=== PATIENT | female | born 1985 | race Caucasian/White ===

== ENCOUNTER 2017-03-18 13:22 | Observation (INO) | payer OTHER ==
[~2017-03-18] VITALS: Ht 175.3 cm; Wt 152.0 kg
[~2017-03-18 13:22] MED LIST: ADVAIR DISK1 INH; ALBUTEROL S2.5 MG/.5 IN; AMOXICILLIN500 MG PO; AUGMENTIN875TAB PO; CARAFATE OR; CIPROFLOXACN500 MG PO; FLEXERIL PO; FLOXIN OTIC0.3 % OT; GLYBURIDE5 MG PO; HUMALOG100 MG/ML; HUMALOG100 UNIT/M SC; HUMULIN 70/30 SC; INSULIN 70/30; INVOKANA300 MG PO; LANTUS100 MG/ML SC; LASIX 20 MG TAB20 MG PO; LEVOTHYROXIN50 MCG PO; MEDDOSEPAK PO; METFORMIN500 MG; METFORMIN500 MG PO; NEOMYCIN/POLYMYXIN/G AD; NOVOLIN 70/30 SC; PERCOCET 5/325M1 TAB PO; PHENERGAN25 MG/TAB PO; PREMARIN VAG0.625 MG PO; PREVACID30 M2 PO; PROMETHAZINE25 MG OR; PROVENTIL HFA IN; PROVERA5 MG PO; REGLAN10 MG PO; THYROID; ULTRAM50 M1 PO; ULTRAM50 MG PO; [UNRECOGNIZED DRUG - OTHER]
[2017-03-18 13:57] LABS: URINE BILIRUBIN - DIPSTICK NEGATIVE (NEGATIVE); URINE BLOOD DIPSTICK NEGATIVE (NEGATIVE); URINE CLARITY CLEAR; URINE COLOR YELLOW; URINE GLUCOSE - DIPSTICK >=1000 mg/dL (NEGATIVE); URINE KETONE NEGATIVE (NEGATIVE); URINE LEUK ESTERASE NEGATIVE (NEGATIVE); URINE NITRITE - DIPSTICK NEGATIVE (Negative); URINE PROTEIN - DIPSTICK NEGATIVE (NEG-TRACE); URINE SPECIFIC GRAVITY 1.015; URINE UROBILINOGEN - DIPSTICK 0.2 E.U./dL (0.2)
[2017-03-18 14:00] LABS: HEMATOCRIT 42.1 % (37.0-47.0); HEMOGLOBIN 14.7 g/dl (12.0-16.0); IMMATURE GRANULOCYTES 0.4 % (0.0-1.0); MEAN CELL VOLUME 87.7 fL CALC (80.0-100.0); MEAN CORPUSCULAR HGB 30.6 pG CALC (26.0-32.0); MEAN CORPUSCULAR HGB CONC 34.9 g/L CALC (32.0-36.0); NEUT# 6.22 thou/uL (2.00-7.15); RED BLOOD COUNT 4.8 mill/uL (4.20-5.60); RED CELL DISTRI WIDTH 13.2 % (11.5-15.5)
[2017-03-18 14:01] LABS: BARBITURATES NEGATIVE (NEGATIVE); COCAINE NEGATIVE (NEGATIVE); METHADONE NEGATIVE (NEGATIVE); OXCYCODONE NEGATIVE (NEGATIVE); TETRAHYDROCANNABIONOL NEGATIVE (NEGATIVE); TRICYLIC ANTIDEPRESSANTS NEGATIVE (NEGATIVE)
[2017-03-18] MEDS ORDERED: ORTHO TRI-CYCLEN LO PO (14:03)
[2017-03-18 14:12] LABS: ALBUMIN 4.5 g/dL (3.2-5.0); ALKALINE PHOSPHATASE 92 u/l (38-126); ANION GAP 20 (6-22 (CALC)); BILIRUBIN, TOTAL 0.7 mg/dL (0.0-1.4); BUN 13 mg/dL (7-17); BUN/CREATININE RATIO 18 (12-20 (CALC)); CALCIUM 9.4 mg/dL (8.4-10.2); CARBON DIOXIDE 22 mmol/l (22-30); CHLORIDE 101 mmol/l (95-108); CREATININE 0.7 mg/dL (0.5-1.0); GFR > 60 ML/MIN (>=60 (CALC)); GFR FOR AFR.AMER. > 60 ML/MIN (>=60 (CALC)); GLUCOSE 190 mg/dL (65-105); POTASSIUM 3.5 mmol/l (3.5-5.1); SGOT/AST 22 u/l (14-36); SGPT/ALT 28 u/l (9-52); SODIUM 139 mmol/l (137-146); TOTAL PROTEIN 8.4 g/dL (6.3-8.2)
[2017-03-18 14:24] LABS: MYOGLOBIN 33 ng/mL (0 - 62)
[2017-03-18 16:15] VITALS: BP 115/68
[2017-03-18 18:58] VITALS: BP 102/67
[2017-03-18 23:16] VITALS: BP 108/63
[2017-03-19 05:17] VITALS: BP 102/68
[2017-03-19 06:07] LABS: HEMATOCRIT 38.5 % (37.0-47.0); HEMOGLOBIN 13.1 g/dl (12.0-16.0); IMMATURE GRANULOCYTES 0.3 % (0.0-1.0); MEAN CELL VOLUME 89.5 fL CALC (80.0-100.0); MEAN CORPUSCULAR HGB 30.5 pG CALC (26.0-32.0); NEUT# 5.19 thou/uL (2.00-7.15); RED BLOOD COUNT 4.3 mill/uL (4.20-5.60); RED CELL DISTRI WIDTH 13.1 % (11.5-15.5)
[2017-03-19 07:41] VITALS: BP 104/49
[2017-03-19 12:22] VITALS: BP 122/72
== END 2017-03-19 13:10 | disposition home or self-care (01) | DRG 313 ==
LOC: ENPENDDIS → ED 13:22 → ED-I 15:07 → ED 15:29 → MS2 15:30
PROVIDERS: Emergency Medicine; ADMIT Internal Medicine; ATTEND Internal Medicine
DX: R07.89 Other chest pain (principal); E10.8 Type 1 diabetes mellitus with unspecified complications; Z68.42 Body mass index [BMI] 45.0-49.9, adult; R55 Syncope and collapse; J45.909 Unspecified asthma, uncomplicated; G47.33 Obstructive sleep apnea (adult) (pediatric); E78.5 Hyperlipidemia, unspecified; E66.01 Morbid (severe) obesity due to excess calories; Z79.4 Long term (current) use of insulin; Z82.49 Family history of ischemic heart disease and other diseases of the circulatory system
CPT/HCPCS: G0378

== ENCOUNTER 2017-05-07 09:51 | Observation (INO) | payer OTHER ==
[~2017-05-07] VITALS: Ht 175.3 cm; Wt 153.0 kg
[~2017-05-07 09:51] MED LIST changes: +ORTHO TRI-CYCLEN LO PO
[2017-05-07] MEDS ORDERED: ALBUTEROL SUL0.083 % IN (10:02)
[2017-05-07 10:44] LABS: HEMOGLOBIN 14.3 g/dl (12.0-16.0); IMMATURE GRANULOCYTES 0.4 % (0.0-1.0); MEAN CELL VOLUME 86.4 fL CALC (80.0-100.0); MEAN CORPUSCULAR HGB 30.9 pG CALC (26.0-32.0); MEAN CORPUSCULAR HGB CONC 35.8 g/L CALC (32.0-36.0); NEUT# 7.91 thou/uL (2.00-7.15); RED BLOOD COUNT 4.63 mill/uL (4.20-5.60); RED CELL DISTRI WIDTH 13.1 % (11.5-15.5)
[2017-05-07 11:03] LABS: ALBUMIN 3.7 g/dL (3.2-5.0); ALKALINE PHOSPHATASE 64 u/l (38-126); ANION GAP 14 (6-22 (CALC)); BILIRUBIN, TOTAL 0.9 mg/dL (0.0-1.4); BUN 13 mg/dL (7-17); BUN/CREATININE RATIO 24 (12-20 (CALC)); CALCIUM 8.5 mg/dL (8.4-10.2); CARBON DIOXIDE 24 mmol/l (22-30); CHLORIDE 103 mmol/l (95-108); CREATININE 0.5 mg/dL (0.5-1.0); GFR > 60 ML/MIN (>=60 (CALC)); GFR FOR AFR.AMER. > 60 ML/MIN (>=60 (CALC)); GLUCOSE 153 mg/dL (65-105); LIPASE 311 u/l (23-300); POTASSIUM 4.5 mmol/l (3.5-5.1); SGOT/AST 34 u/l (14-36); SGPT/ALT 31 u/l (9-52); SODIUM 137 mmol/l (137-146); TOTAL PROTEIN 6.7 g/dL (6.3-8.2)
[2017-05-07 11:32] LABS: URINE BILIRUBIN - DIPSTICK NEGATIVE (NEGATIVE); URINE BLOOD DIPSTICK NEGATIVE (NEGATIVE); URINE CLARITY CLEAR; URINE COLOR YELLOW; URINE GLUCOSE - DIPSTICK NEGATIVE (NEGATIVE); URINE KETONE NEGATIVE (NEGATIVE); URINE LEUK ESTERASE NEGATIVE (Negative); URINE NITRITE - DIPSTICK NEGATIVE (Negative); URINE PH 6.5 (4.5-8.0); URINE PROTEIN - DIPSTICK NEGATIVE (NEG-TRACE); URINE SPECIFIC GRAVITY 1.015; URINE UROBILINOGEN - DIPSTICK 0.2 E.U./dL (0.2)
[2017-05-07 15:36] VITALS: BP 110/78
[2017-05-07 18:58] VITALS: BP 115/75
[2017-05-07 23:44] VITALS: BP 112/66
[2017-05-08 03:32] VITALS: BP 113/72
[2017-05-08 04:57] LABS: HEMATOCRIT 38.7 % (37.0-47.0); HEMOGLOBIN 13.3 g/dl (12.0-16.0); IMMATURE GRANULOCYTES 0.3 % (0.0-1.0); MEAN CELL VOLUME 89.4 fL CALC (80.0-100.0); MEAN CORPUSCULAR HGB 30.7 pG CALC (26.0-32.0); MEAN CORPUSCULAR HGB CONC 34.4 g/L CALC (32.0-36.0); NEUT# 7.04 thou/uL (2.00-7.15); RED BLOOD COUNT 4.33 mill/uL (4.20-5.60); RED CELL DISTRI WIDTH 12.9 % (11.5-15.5)
[2017-05-08 05:18] LABS: AMYLASE 35 u/l (30-110); ANION GAP 10 (6-22 (CALC)); BUN 10 mg/dL (7-17); BUN/CREATININE RATIO 18 (12-20 (CALC)); CALCIUM 8.6 mg/dL (8.4-10.2); CARBON DIOXIDE 28 mmol/l (22-30); CHLORIDE 104 mmol/l (95-108); CREATININE 0.6 mg/dL (0.5-1.0); GFR > 60 ML/MIN (>=60 (CALC)); GFR FOR AFR.AMER. > 60 ML/MIN (>=60 (CALC)); GLUCOSE 99 mg/dL (65-105); LIPASE 199 u/l (23-300); POTASSIUM 4.2 mmol/l (3.5-5.1); SODIUM 137 mmol/l (137-146)
[2017-05-08 08:08] VITALS: BP 113/70
[2017-05-08] MEDS ORDERED: MIRALAX3350 NF PO (11:46)
== END 2017-05-08 15:10 | disposition home or self-care (01) | DRG 439 ==
LOC: ENPENDDIS → ED 09:51 → ED-I 14:44 → ED 14:58 → MS2 14:59 → ED 15:06 → ED-I 15:06 → MS2 05-08 15:10
PROVIDERS: Emergency Medicine; Nurse Practitioner Family; ADMIT Internal Medicine; ATTEND Internal Medicine
DX: K85.90 Acute pancreatitis without necrosis or infection, unspecified (principal); Z68.42 Body mass index [BMI] 45.0-49.9, adult; N83.202 Unspecified ovarian cyst, left side; E03.9 Hypothyroidism, unspecified; J45.909 Unspecified asthma, uncomplicated; G47.30 Sleep apnea, unspecified; E10.9 Type 1 diabetes mellitus without complications; K59.00 Constipation, unspecified; N93.8 Other specified abnormal uterine and vaginal bleeding; E66.01 Morbid (severe) obesity due to excess calories; Z79.84 Long term (current) use of oral hypoglycemic drugs; Z79.4 Long term (current) use of insulin; Z76.5 Malingerer [conscious simulation]
CPT/HCPCS: G0378; Q9967; S0164

== ENCOUNTER 2017-05-14 08:50 | Emergency (ER) | payer OTHER ==
[~2017-05-14] VITALS: Ht 175.3 cm; Wt 153.0 kg
[~2017-05-14 08:50] MED LIST changes: +ALBUTEROL SUL0.083 % IN; +MIRALAX3350 NF PO
[2017-05-14 09:23] LABS: HEMATOCRIT 39.8 % (37.0-47.0); HEMOGLOBIN 13.9 g/dl (12.0-16.0); IMMATURE GRANULOCYTES 0.3 % (0.0-1.0); MEAN CORPUSCULAR HGB 31.1 pG CALC (26.0-32.0); MEAN CORPUSCULAR HGB CONC 34.9 g/L CALC (32.0-36.0); NEUT# 5.07 thou/uL (2.00-7.15); RED BLOOD COUNT 4.47 mill/uL (4.20-5.60); RED CELL DISTRI WIDTH 12.7 % (11.5-15.5)
[2017-05-14 09:35] LABS: URINE BILIRUBIN - DIPSTICK NEGATIVE (NEGATIVE); URINE BLOOD DIPSTICK LARGE (NEGATIVE); URINE CLARITY TURBID; URINE GLUCOSE - DIPSTICK >=1000 mg/dL (NEGATIVE); URINE KETONE NEGATIVE (NEGATIVE); URINE LEUK ESTERASE NEGATIVE (NEGATIVE); URINE NITRITE - DIPSTICK NEGATIVE (Negative); URINE PROTEIN - DIPSTICK TRACE mg/dL (NEG-TRACE); URINE UROBILINOGEN - DIPSTICK 0.2 E.U./dL (0.2)
[2017-05-14 09:37] LABS: URINE COLOR DK. YELLOW
[2017-05-14 09:38] LABS: URINE BACTERIA FEW hpf; URINE RBC 25-50 RBC/hpf (0-5); URINE SQUAMOUS EPITHELIAL CELL FEW EPI/hpf (0-FEW)
[2017-05-14 09:47] LABS: ALKALINE PHOSPHATASE 78 u/l (38-126); ANION GAP 16 (6-22 (CALC)); BILIRUBIN, TOTAL 0.4 mg/dL (0.0-1.4); BUN 9 mg/dL (7-17); BUN/CREATININE RATIO 16 (12-20 (CALC)); CALCIUM 9.3 mg/dL (8.4-10.2); CARBON DIOXIDE 23 mmol/l (22-30); CHLORIDE 104 mmol/l (95-108); CREATININE 0.6 mg/dL (0.5-1.0); GFR > 60 ML/MIN (>=60 (CALC)); GFR FOR AFR.AMER. > 60 ML/MIN (>=60 (CALC)); GLUCOSE 291 mg/dL (65-105); POTASSIUM 4.3 mmol/l (3.5-5.1); SGOT/AST 19 u/l (14-36); SGPT/ALT 41 u/l (9-52); SODIUM 138 mmol/l (137-146); TOTAL PROTEIN 6.6 g/dL (6.3-8.2)
[2017-05-14 12:30] VITALS: BP 107/61
== END 2017-05-14 13:25 | disposition home or self-care (01) | DRG 761 ==
LOC: ED 08:50
PROVIDERS: Emergency Medicine
DX: N93.8 Other specified abnormal uterine and vaginal bleeding (principal); E66.01 Morbid (severe) obesity due to excess calories; E11.9 Type 2 diabetes mellitus without complications; J45.909 Unspecified asthma, uncomplicated; E03.9 Hypothyroidism, unspecified; Z79.4 Long term (current) use of insulin; Z79.84 Long term (current) use of oral hypoglycemic drugs
CPT/HCPCS: J1410

== ENCOUNTER 2017-05-16 01:44 | Emergency (ER) | payer OTHER ==
[~2017-05-16] VITALS: Ht 175.3 cm; Wt 154.0 kg
[2017-05-16] MEDS ORDERED: PREMARIN0.3 MG PO (02:27)
[2017-05-16 02:44] LABS: HEMATOCRIT 37.9 % (37.0-47.0); HEMOGLOBIN 13.3 g/dl (12.0-16.0); IMMATURE GRANULOCYTES 0.2 % (0.0-1.0); MEAN CELL VOLUME 87.9 fL CALC (80.0-100.0); MEAN CORPUSCULAR HGB 30.9 pG CALC (26.0-32.0); MEAN CORPUSCULAR HGB CONC 35.1 g/L CALC (32.0-36.0); NEUT# 5.42 thou/uL (2.00-7.15); RED BLOOD COUNT 4.31 mill/uL (4.20-5.60); RED CELL DISTRI WIDTH 12.6 % (11.5-15.5)
[2017-05-16 02:49] LABS: ALBUMIN 3.9 g/dL (3.2-5.0); ALKALINE PHOSPHATASE 80 u/l (38-126); ANION GAP 14 (6-22 (CALC)); BILIRUBIN, TOTAL 0.4 mg/dL (0.0-1.4); BUN 13 mg/dL (7-17); BUN/CREATININE RATIO 23 (12-20 (CALC)); CALCIUM 9.3 mg/dL (8.4-10.2); CARBON DIOXIDE 25 mmol/l (22-30); CHLORIDE 104 mmol/l (95-108); CREATININE 0.5 mg/dL (0.5-1.0); GFR > 60 ML/MIN (>=60 (CALC)); GFR FOR AFR.AMER. > 60 ML/MIN (>=60 (CALC)); GLUCOSE 254 mg/dL (65-105); POTASSIUM 4.2 mmol/l (3.5-5.1); SGOT/AST 16 u/l (14-36); SGPT/ALT 34 u/l (9-52); SODIUM 138 mmol/l (137-146); TOTAL PROTEIN 6.4 g/dL (6.3-8.2)
[2017-05-16 03:06] LABS: ACT PARTIAL THROMBO TIME 23.1 SECONDS (20.0-32.5); INTERNATIONAL NORMALIZED RATIO 0.9 RATIO (0.7-1.3); PROTHROMBIN TIME 9.8 SECONDS (9.0-12.5)
[2017-05-16 04:20] VITALS: BP 124/62
== END 2017-05-16 04:25 | disposition home or self-care (01) | DRG 761 ==
LOC: ED 01:44
PROVIDERS: Emergency Medicine
DX: N93.8 Other specified abnormal uterine and vaginal bleeding (principal); E03.9 Hypothyroidism, unspecified; E11.9 Type 2 diabetes mellitus without complications; J45.909 Unspecified asthma, uncomplicated

== ENCOUNTER 2017-05-20 10:16 | Observation (INO) | payer OTHER ==
[2017-05-20] VITALS (9 sets, daily range): BP systolic 93–120; BP diastolic 56–76
[~2017-05-20] VITALS: Ht 172.7 cm; Wt 156.9 kg
[~2017-05-20 10:16] MED LIST changes: +PREMARIN0.3 MG PO
[2017-05-20] MEDS ORDERED: LORTAB 7.5-3251 TAB PO (13:34)
[2017-05-20 17:55] LABS: AMYLASE < 30 u/l (30-110); LIPASE 33 u/l (23-300)
[2017-05-21 06:20] LABS: HEMATOCRIT 34.6 % (37.0-47.0); IMMATURE GRANULOCYTES 0.4 % (0.0-1.0); MEAN CELL VOLUME 89.2 fL CALC (80.0-100.0); MEAN CORPUSCULAR HGB 30.9 pG CALC (26.0-32.0); MEAN CORPUSCULAR HGB CONC 34.7 g/L CALC (32.0-36.0); NEUT# 4.45 thou/uL (2.00-7.15); RED BLOOD COUNT 3.88 mill/uL (4.20-5.60); RED CELL DISTRI WIDTH 13.2 % (11.5-15.5)
[2017-05-21 06:40] LABS: ALKALINE PHOSPHATASE 60 u/l (38-126); AMYLASE < 30 u/l (30-110); ANION GAP 10 (6-22 (CALC)); BILIRUBIN, TOTAL 0.4 mg/dL (0.0-1.4); BUN 6 mg/dL (7-17); BUN/CREATININE RATIO 13 (12-20 (CALC)); CALCIUM 8.2 mg/dL (8.4-10.2); CARBON DIOXIDE 25 mmol/l (22-30); CHLORIDE 108 mmol/l (95-108); CREATININE 0.4 mg/dL (0.5-1.0); GFR > 60 ML/MIN (>=60 (CALC)); GFR FOR AFR.AMER. > 60 ML/MIN (>=60 (CALC)); GLUCOSE 128 mg/dL (65-105); LIPASE 45 u/l (23-300); POTASSIUM 3.8 mmol/l (3.5-5.1); SGOT/AST 16 u/l (14-36); SGPT/ALT 31 u/l (9-52); SODIUM 139 mmol/l (137-146); TOTAL PROTEIN 5.4 g/dL (6.3-8.2)
[2017-05-21 07:30] VITALS: BP 112/72
== END 2017-05-21 09:24 | disposition home or self-care (01) | DRG 744 ==
LOC: ENPENDDIS → ORM 10:16 → MS2 17:15
PROVIDERS: ADMIT Obstetrics & Gynecology; ATTEND Obstetrics & Gynecology
PROC: 0UDB8ZX Extraction of Endometrium, Via Natural or Artificial Opening Endoscopic, Diagnostic (ICD-10-PCS; principal; 2017-05-20)
DX: N92.1 Excessive and frequent menstruation with irregular cycle (principal); Z68.43 Body mass index [BMI] 50.0-59.9, adult; R11.2 Nausea with vomiting, unspecified; E10.9 Type 1 diabetes mellitus without complications; J45.909 Unspecified asthma, uncomplicated; E03.9 Hypothyroidism, unspecified; K21.9 Gastro-esophageal reflux disease without esophagitis; E66.01 Morbid (severe) obesity due to excess calories; N94.6 Dysmenorrhea, unspecified; Z79.4 Long term (current) use of insulin
CPT/HCPCS: G0378

== ENCOUNTER 2017-07-01 06:02 | Day surgery (SDC) | payer OTHER ==
[~2017-07-01] VITALS: Ht 175.3 cm; Wt 156.5 kg
[~2017-07-01 06:02] MED LIST changes: +LISI20TA5; +LISINOPRIL XX; +LISINOPRIL5 MG PO; +LORTAB 7.5-3251 TAB PO
[2017-07-01 10:55] VITALS: BP 141/86
== END 2017-07-01 08:30 | disposition home or self-care (01) | DRG 552 ==
LOC: ORM 06:02
PROVIDERS: ATTEND Anesthesiology Pain Medicine
PROC: 3E0T3BZ Introduction of Anesthetic Agent into Peripheral Nerves and Plexi, Percutaneous Approach (ICD-10-PCS; principal; 2017-07-01)
PROC: 3E0T33Z Introduction of Anti-inflammatory into Peripheral Nerves and Plexi, Percutaneous Approach (ICD-10-PCS; 2017-07-01)
PROC: 3E0T3BZ Introduction of Anesthetic Agent into Peripheral Nerves and Plexi, Percutaneous Approach (ICD-10-PCS; 2017-07-01)
PROC: 3E0T3BZ Introduction of Anesthetic Agent into Peripheral Nerves and Plexi, Percutaneous Approach (ICD-10-PCS; 2017-07-01)
PROC: 3E0T33Z Introduction of Anti-inflammatory into Peripheral Nerves and Plexi, Percutaneous Approach (ICD-10-PCS; 2017-07-01)
PROC: 3E0T33Z Introduction of Anti-inflammatory into Peripheral Nerves and Plexi, Percutaneous Approach (ICD-10-PCS; 2017-07-01)
DX: M54.5 Low back pain (principal)

== ENCOUNTER 2017-07-15 05:51 | Day surgery (SDC) | payer OTHER ==
[~2017-07-15] VITALS: Ht 175.3 cm; Wt 152.0 kg
[2017-07-15] MEDS ORDERED: ZITHROMAX250 MG PO (06:12)
[2017-07-15] MEDS ORDERED: PROAIR HFA108 MCG/AC (06:13)
[2017-07-15 07:36] VITALS: BP 122/67
== END 2017-07-15 07:55 | disposition home or self-care (01) | DRG 552 ==
LOC: ORM 05:51
PROVIDERS: ATTEND Anesthesiology Pain Medicine
PROC: 3E0T3BZ Introduction of Anesthetic Agent into Peripheral Nerves and Plexi, Percutaneous Approach (ICD-10-PCS; principal; 2017-07-15)
PROC: 3E0T33Z Introduction of Anti-inflammatory into Peripheral Nerves and Plexi, Percutaneous Approach (ICD-10-PCS; 2017-07-15)
PROC: 3E0T3BZ Introduction of Anesthetic Agent into Peripheral Nerves and Plexi, Percutaneous Approach (ICD-10-PCS; 2017-07-15)
PROC: 3E0T33Z Introduction of Anti-inflammatory into Peripheral Nerves and Plexi, Percutaneous Approach (ICD-10-PCS; 2017-07-15)
DX: M54.5 Low back pain (principal)

== ENCOUNTER 2017-08-10 01:24 | Emergency (ER) | payer OTHER ==
[~2017-08-10] VITALS: Ht 175.3 cm; Wt 154.2 kg
[~2017-08-10 01:24] MED LIST changes: +PROAIR HFA108 MCG/AC; +ZITHROMAX250 MG PO
[2017-08-10] MEDS ORDERED: LANTUS100 UNIT/M SC (02:33)
[2017-08-10 02:36] LABS: HEMATOCRIT 42.7 % (37.0-47.0); HEMOGLOBIN 14.8 g/dl (12.0-16.0); IMMATURE GRANULOCYTES 0.4 % (0.0-1.0); MEAN CELL VOLUME 90.3 fL CALC (80.0-100.0); MEAN CORPUSCULAR HGB 31.3 pG CALC (26.0-32.0); MEAN CORPUSCULAR HGB CONC 34.7 g/L CALC (32.0-36.0); NEUT# 9.52 thou/uL (2.00-7.15); RED BLOOD COUNT 4.73 mill/uL (4.20-5.60); RED CELL DISTRI WIDTH 13.1 % (11.5-15.5); URINE BILIRUBIN - DIPSTICK NEGATIVE (NEGATIVE); URINE BLOOD DIPSTICK NEGATIVE (NEGATIVE); URINE CLARITY SLIGHT CLOUDY; URINE COLOR YELLOW; URINE GLUCOSE - DIPSTICK NEGATIVE (NEGATIVE); URINE KETONE NEGATIVE (NEGATIVE); URINE LEUK ESTERASE NEGATIVE (NEGATIVE); URINE NITRITE - DIPSTICK NEGATIVE (Negative); URINE PROTEIN - DIPSTICK NEGATIVE (NEG-TRACE); URINE SPECIFIC GRAVITY 1.025; URINE UROBILINOGEN - DIPSTICK 0.2 E.U./dL (0.2)
[2017-08-10 02:45] LABS: ALKALINE PHOSPHATASE 72 u/l (38-126); AMYLASE 45 u/l (30-110); ANION GAP 16 (6-22 (CALC)); BILIRUBIN, TOTAL 0.6 mg/dL (0.0-1.4); BUN 15 mg/dL (7-17); BUN/CREATININE RATIO 24 (12-20 (CALC)); CALCIUM 9.2 mg/dL (8.4-10.2); CARBON DIOXIDE 30 mmol/l (22-30); CHLORIDE 102 mmol/l (95-108); CREATININE 0.6 mg/dL (0.5-1.0); GFR > 60 ML/MIN (>=60 (CALC)); GFR FOR AFR.AMER. > 60 ML/MIN (>=60 (CALC)); GLUCOSE 184 mg/dL (65-105); LIPASE 74 u/l (23-300); POTASSIUM 4.1 mmol/l (3.5-5.1); SGOT/AST 24 u/l (14-36); SGPT/ALT 44 u/l (9-52); SODIUM 143 mmol/l (137-146); TOTAL PROTEIN 7.2 g/dL (6.3-8.2)
[2017-08-10 02:57] LABS: MYOGLOBIN 23 ng/mL (0 - 62)
[2017-08-10 05:30] VITALS: BP 112/66
== END 2017-08-10 05:30 | disposition short-term general hospital (02) | DRG 392 ==
LOC: ED 01:24
PROVIDERS: Emergency Medicine
DX: R10.13 Epigastric pain (principal); R11.2 Nausea with vomiting, unspecified
CPT/HCPCS: S0164

== ENCOUNTER 2017-09-16 22:04 | Emergency (ER) | payer OTHER ==
[~2017-09-16] VITALS: Ht 175.3 cm; Wt 152.0 kg
[~2017-09-16 22:04] MED LIST changes: +LANTUS100 UNIT/M SC
[2017-09-16] MEDS ORDERED: BACLOFEN20 MG PO (23:08)
[2017-09-16] MEDS ORDERED: GABAPENTIN300 M2 (23:09)
[2017-09-16] MEDS ORDERED: [UNRECOGNIZED DRUG - MIXTURE] PO (23:11)
[2017-09-16 23:42] LABS: URINE BILIRUBIN - DIPSTICK NEGATIVE (NEGATIVE); URINE BLOOD DIPSTICK NEGATIVE (NEGATIVE); URINE CLARITY CLEAR; URINE COLOR YELLOW; URINE GLUCOSE - DIPSTICK NEGATIVE (NEGATIVE); URINE KETONE NEGATIVE (NEGATIVE); URINE LEUK ESTERASE NEGATIVE (NEGATIVE); URINE NITRITE - DIPSTICK NEGATIVE (Negative); URINE PROTEIN - DIPSTICK NEGATIVE (NEG-TRACE); URINE UROBILINOGEN - DIPSTICK 0.2 E.U./dL (0.2)
[2017-09-16 23:51] LABS: HEMATOCRIT 39.2 % (37.0-47.0); HEMOGLOBIN 13.5 g/dl (12.0-16.0); IMMATURE GRANULOCYTES 0.5 % (0.0-1.0); MEAN CELL VOLUME 90.1 fL CALC (80.0-100.0); MEAN CORPUSCULAR HGB CONC 34.4 g/L CALC (32.0-36.0); NEUT# 6.57 thou/uL (2.00-7.15); RED BLOOD COUNT 4.35 mill/uL (4.20-5.60); RED CELL DISTRI WIDTH 12.9 % (11.5-15.5)
[2017-09-17 00:07] LABS: ALBUMIN 4.1 g/dL (3.2-5.0); ALKALINE PHOSPHATASE 74 u/l (38-126); ANION GAP 13 (6-22 (CALC)); BILIRUBIN, TOTAL 0.6 mg/dL (0.0-1.4); BUN 11 mg/dL (7-17); BUN/CREATININE RATIO 20 (12-20 (CALC)); CALCIUM 9.7 mg/dL (8.4-10.2); CARBON DIOXIDE 29 mmol/l (22-30); CHLORIDE 103 mmol/l (95-108); CREATININE 0.6 mg/dL (0.5-1.0); GFR > 60 ML/MIN (>=60 (CALC)); GFR FOR AFR.AMER. > 60 ML/MIN (>=60 (CALC)); GLUCOSE 190 mg/dL (65-105); POTASSIUM 4.2 mmol/l (3.5-5.1); SGOT/AST 19 u/l (14-36); SGPT/ALT 41 u/l (9-52); SODIUM 140 mmol/l (137-146); TOTAL PROTEIN 6.8 g/dL (6.3-8.2)
[2017-09-17] MEDS ORDERED: ULTRAM50 M1 PO (02:09)
[2017-09-17 02:20] VITALS: BP 134/85
== END 2017-09-17 02:20 | disposition home or self-care (01) | DRG 392 ==
LOC: ED 22:04
PROVIDERS: Emergency Medicine
DX: R10.32 Left lower quadrant pain (principal); M54.5 Low back pain; R11.0 Nausea; N83.202 Unspecified ovarian cyst, left side
CPT/HCPCS: Q9967

== ENCOUNTER 2017-09-18 09:22 | Emergency (ER) | payer OTHER ==
[~2017-09-18] VITALS: Ht 175.3 cm; Wt 152.0 kg
[~2017-09-18 09:22] MED LIST changes: +BACLOFEN20 MG PO; +GABAPENTIN300 M2; +[UNRECOGNIZED DRUG - MIXTURE] PO
[2017-09-18 10:24] LABS: ALKALINE PHOSPHATASE 78 u/l (38-126); ANION GAP 13 (6-22 (CALC)); BILIRUBIN, TOTAL 0.6 mg/dL (0.0-1.4); BUN 11 mg/dL (7-17); BUN/CREATININE RATIO 20 (12-20 (CALC)); CALCIUM 9.3 mg/dL (8.4-10.2); CARBON DIOXIDE 27 mmol/l (22-30); CHLORIDE 104 mmol/l (95-108); CREATININE 0.5 mg/dL (0.5-1.0); GFR > 60 ML/MIN (>=60 (CALC)); GFR FOR AFR.AMER. > 60 ML/MIN (>=60 (CALC)); GLUCOSE 199 mg/dL (65-105); POTASSIUM 4.4 mmol/l (3.5-5.1); SGOT/AST 33 u/l (14-36); SGPT/ALT 37 u/l (9-52); SODIUM 141 mmol/l (137-146)
[2017-09-18 10:26] LABS: HEMATOCRIT 39.2 % (37.0-47.0); HEMOGLOBIN 13.4 g/dl (12.0-16.0); IMMATURE GRANULOCYTES 0.3 % (0.0-1.0); MEAN CELL VOLUME 90.1 fL CALC (80.0-100.0); MEAN CORPUSCULAR HGB 30.8 pG CALC (26.0-32.0); MEAN CORPUSCULAR HGB CONC 34.2 g/L CALC (32.0-36.0); NEUT# 4.57 thou/uL (2.00-7.15); RED BLOOD COUNT 4.35 mill/uL (4.20-5.60)
[2017-09-18 10:38] LABS: MYOGLOBIN 25 ng/mL (0 - 62)
[2017-09-18 10:53] LABS: URINE BILIRUBIN - DIPSTICK NEGATIVE (NEGATIVE); URINE BLOOD DIPSTICK NEGATIVE (NEGATIVE); URINE CLARITY CLEAR; URINE COLOR YELLOW; URINE GLUCOSE - DIPSTICK NEGATIVE (NEGATIVE); URINE KETONE NEGATIVE (NEGATIVE); URINE LEUK ESTERASE NEGATIVE (NEGATIVE); URINE NITRITE - DIPSTICK NEGATIVE (Negative); URINE PH 6.5 (4.5-8.0); URINE PROTEIN - DIPSTICK NEGATIVE (NEG-TRACE); URINE SPECIFIC GRAVITY 1.015; URINE UROBILINOGEN - DIPSTICK 0.2 E.U./dL (0.2)
[2017-09-18 10:56] LABS: BARBITURATES NEGATIVE (NEGATIVE); COCAINE NEGATIVE (NEGATIVE); METHADONE NEGATIVE (NEGATIVE); OXCYCODONE POSITIVE (NEGATIVE); TETRAHYDROCANNABIONOL NEGATIVE (NEGATIVE); TRICYLIC ANTIDEPRESSANTS NEGATIVE (NEGATIVE)
[2017-09-18 11:00] VITALS: BP 137/71
== END 2017-09-18 11:00 | disposition home or self-care (01) | DRG 313 ==
LOC: ED 09:22
PROVIDERS: Emergency Medicine
DX: R07.89 Other chest pain (principal)

== ENCOUNTER 2017-09-18 12:31 | Inpatient (IN) | payer OTHER ==
[~2017-09-18] VITALS: Ht 175.3 cm; Wt 156.8 kg
[2017-09-18] VITALS (9 sets, daily range): BP systolic 103–164; BP diastolic 62–78
[2017-09-18 14:25] LABS: URINE BILIRUBIN - DIPSTICK NEGATIVE (NEGATIVE); URINE BLOOD DIPSTICK NEGATIVE (NEGATIVE); URINE CLARITY CLEAR; URINE COLOR YELLOW; URINE GLUCOSE - DIPSTICK NEGATIVE (NEGATIVE); URINE KETONE NEGATIVE (NEGATIVE); URINE NITRITE - DIPSTICK NEGATIVE (Negative); URINE PH 6.5 (4.5-8.0); URINE PROTEIN - DIPSTICK NEGATIVE (NEG-TRACE); URINE UROBILINOGEN - DIPSTICK 0.2 E.U./dL (0.2)
[2017-09-18 14:41] LABS: HEMATOCRIT 36.1 % (37.0-47.0); HEMOGLOBIN 12.5 g/dl (12.0-16.0); IMMATURE GRANULOCYTES 0.3 % (0.0-1.0); MEAN CELL VOLUME 89.8 fL CALC (80.0-100.0); MEAN CORPUSCULAR HGB 31.1 pG CALC (26.0-32.0); MEAN CORPUSCULAR HGB CONC 34.6 g/L CALC (32.0-36.0); NEUT# 3.84 thou/uL (2.00-7.15); RED BLOOD COUNT 4.02 mill/uL (4.20-5.60)
[2017-09-18 15:00] LABS: ALBUMIN 3.3 g/dL (3.2-5.0); ALKALINE PHOSPHATASE 67 u/l (38-126); ANION GAP 13 (6-22 (CALC)); BILIRUBIN, TOTAL 0.6 mg/dL (0.0-1.4); BUN 10 mg/dL (7-17); BUN/CREATININE RATIO 21 (12-20 (CALC)); CALCIUM 8.7 mg/dL (8.4-10.2); CARBON DIOXIDE 23 mmol/l (22-30); CHLORIDE 109 mmol/l (95-108); CREATININE 0.5 mg/dL (0.5-1.0); GFR > 60 ML/MIN (>=60 (CALC)); GFR FOR AFR.AMER. > 60 ML/MIN (>=60 (CALC)); GLUCOSE 158 mg/dL (65-105); POTASSIUM 4.2 mmol/l (3.5-5.1); SGOT/AST 22 u/l (14-36); SGPT/ALT 36 u/l (9-52); SODIUM 140 mmol/l (137-146); TOTAL PROTEIN 5.9 g/dL (6.3-8.2)
[2017-09-18 17:19] LABS: URINE LEUK ESTERASE NEGATIVE (NEGATIVE)
[2017-09-19 00:50] VITALS: BP 119/69
[2017-09-19 05:11] VITALS: BP 116/64
[2017-09-19 09:15] VITALS: BP 90/52
[2017-09-19 16:30] VITALS: BP 130/75
[2017-09-19 19:50] VITALS: BP 102/64
[2017-09-20 00:20] VITALS: BP 109/71
[2017-09-20 04:46] VITALS: BP 111/67
[2017-09-20] MEDS ORDERED: DOXYCYC MONO PO (08:29)
[2017-09-20] MEDS ORDERED: LORTAB 1010 MG PO (08:31)
== END 2017-09-20 10:36 | disposition home or self-care (01) | DRG 744 ==
LOC: MS2 12:31
PROVIDERS: ADMIT Obstetrics & Gynecology; ATTEND Obstetrics & Gynecology
PROC: 0WJJ4ZZ Inspection of Pelvic Cavity, Percutaneous Endoscopic Approach (ICD-10-PCS; principal; 2017-09-18)
DX: N73.9 Female pelvic inflammatory disease, unspecified (principal); Z68.43 Body mass index [BMI] 50.0-59.9, adult; E66.01 Morbid (severe) obesity due to excess calories; R55 Syncope and collapse; E03.9 Hypothyroidism, unspecified; K21.9 Gastro-esophageal reflux disease without esophagitis; E10.9 Type 1 diabetes mellitus without complications; J45.909 Unspecified asthma, uncomplicated; G47.30 Sleep apnea, unspecified; G89.29 Other chronic pain; M54.9 Dorsalgia, unspecified; Z76.5 Malingerer [conscious simulation]; Z79.4 Long term (current) use of insulin; Z87.442 Personal history of urinary calculi
CPT/HCPCS: J2710

== ENCOUNTER 2018-01-11 04:16 | Observation (INO) | payer OTHER ==
[~2018-01-11] VITALS: Ht 175.3 cm; Wt 155.4 kg
[~2018-01-11 04:16] MED LIST changes: +DOXYCYC MONO PO; +LORTAB 1010 MG PO
[2018-01-11 05:49] LABS: HEMATOCRIT 40.5 % (37.0-47.0); HEMOGLOBIN 14.1 g/dl (12.0-16.0); IMMATURE GRANULOCYTES 0.2 % (0.0-1.0); MEAN CELL VOLUME 88.2 fL CALC (80.0-100.0); MEAN CORPUSCULAR HGB 30.7 pG CALC (26.0-32.0); MEAN CORPUSCULAR HGB CONC 34.8 g/L CALC (32.0-36.0); NEUT# 4.61 thou/uL (2.00-7.15); RED BLOOD COUNT 4.59 mill/uL (4.20-5.60); RED CELL DISTRI WIDTH 12.6 % (11.5-15.5)
[2018-01-11 05:55] LABS: URINE BILIRUBIN - DIPSTICK NEGATIVE (NEGATIVE); URINE BLOOD DIPSTICK NEGATIVE (NEGATIVE); URINE COLOR YELLOW; URINE GLUCOSE - DIPSTICK >=1000 mg/dL (NEGATIVE); URINE KETONE NEGATIVE (NEGATIVE); URINE LEUK ESTERASE NEGATIVE (NEGATIVE); URINE NITRITE - DIPSTICK NEGATIVE (Negative); URINE PH 6.5 (4.5-8.0); URINE PROTEIN - DIPSTICK NEGATIVE (NEG-TRACE); URINE SPECIFIC GRAVITY 1.015; URINE UROBILINOGEN - DIPSTICK 0.2 E.U./dL (0.2)
[2018-01-11 06:01] LABS: URINE CLARITY CLEAR
[2018-01-11 06:02] LABS: ALKALINE PHOSPHATASE 79 u/l (38-126); AMYLASE < 30 u/l (30-110); ANION GAP 17 (6-22 (CALC)); BUN 13 mg/dL (7-17); BUN/CREATININE RATIO 24 (12-20 (CALC)); CARBON DIOXIDE 25 mmol/l (22-30); CHLORIDE 103 mmol/l (95-108); CREATININE 0.5 mg/dL (0.5-1.0); GFR > 60 ML/MIN (>=60 (CALC)); GFR FOR AFR.AMER. > 60 ML/MIN (>=60 (CALC)); LIPASE 94 u/l (23-300); POTASSIUM 4.2 mmol/l (3.5-5.1); SGOT/AST 25 u/l (14-36); SGPT/ALT 31 u/l (9-52); SODIUM 141 mmol/l (137-146); TOTAL PROTEIN 6.6 g/dL (6.3-8.2)
[2018-01-11 06:14] LABS: BILIRUBIN, TOTAL 0.3 mg/dL (0.0-1.4); MYOGLOBIN 15 ng/mL (0 - 62)
[2018-01-11 09:09] VITALS: BP 106/71
[2018-01-11 11:56] VITALS: BP 103/64
[2018-01-11] MEDS ORDERED: PEPCID40 MG PO (15:00)
[2018-01-11 20:32] LABS: CHOLESTEROL HDL RATIO 5.2 (<4.4 (CALC))
== END 2018-01-11 15:40 | disposition home or self-care (01) | DRG 313 ==
LOC: ED 04:16 → ED-I 07:11 → ED 07:45 → MS2 07:46
PROVIDERS: Emergency Medicine; Nurse Practitioner Family; ADMIT Internal Medicine; ATTEND Internal Medicine
DX: R07.9 Chest pain, unspecified (principal); K30 Functional dyspepsia; E10.65 Type 1 diabetes mellitus with hyperglycemia; Z68.43 Body mass index [BMI] 50.0-59.9, adult; E03.9 Hypothyroidism, unspecified; G89.29 Other chronic pain; M54.9 Dorsalgia, unspecified; K21.9 Gastro-esophageal reflux disease without esophagitis; G47.33 Obstructive sleep apnea (adult) (pediatric); J44.9 Chronic obstructive pulmonary disease, unspecified; I10 Essential (primary) hypertension; E66.9 Obesity, unspecified; Z79.4 Long term (current) use of insulin
CPT/HCPCS: G0378; S0164

== ENCOUNTER 2018-01-25 19:46 | Emergency (ER) | payer OTHER ==
[~2018-01-25] VITALS: Ht 175.3 cm; Wt 157.0 kg
[~2018-01-25 19:46] MED LIST changes: +PEPCID40 MG PO
[2018-01-25] MEDS ORDERED: PERCOCET 5/325M1 TAB PO (20:53)
[2018-01-25 21:35] VITALS: BP 138/77
== END 2018-01-25 21:40 | disposition home or self-care (01) | DRG 563 ==
LOC: ED 19:46
PROC: 2W3MX1Z Immobilization of Left Lower Extremity using Splint (ICD-10-PCS; principal; 2018-01-25)
DX: S93.402A Sprain of unspecified ligament of left ankle, initial encounter (principal); X50.1XXA Overexertion from prolonged static or awkward postures, initial encounter; W17.2XXA Fall into hole, initial encounter; Y93.01 Activity, walking, marching and hiking; Y92.830 Public park as the place of occurrence of the external cause

== ENCOUNTER 2018-06-16 06:20 | Day surgery (SDC) | payer OTHER ==
[~2018-06-16 06:20] MED LIST changes: +BYDUREON2 MG
[2018-06-16 10:05] VITALS: BP 113/60
== END 2018-06-16 09:22 | disposition home or self-care (01) ==
LOC: ORM 06:20
PROVIDERS: ATTEND Anesthesiology Pain Medicine
DX: M54.5 Low back pain (principal); M46.96 Unspecified inflammatory spondylopathy, lumbar region

== ENCOUNTER 2018-06-25 10:19 | Emergency (ER) | payer OTHER ==
[~2018-06-25] VITALS: Ht 175.3 cm; Wt 155.0 kg
[2018-06-25 11:04] LABS: URINE BILIRUBIN - DIPSTICK NEGATIVE (NEGATIVE); URINE BLOOD DIPSTICK TRACE-INTACT (NEGATIVE); URINE COLOR YELLOW; URINE GLUCOSE - DIPSTICK NEGATIVE (NEGATIVE); URINE KETONE NEGATIVE (NEGATIVE); URINE NITRITE - DIPSTICK POSITIVE (Negative); URINE PROTEIN - DIPSTICK TRACE mg/dL (NEG-TRACE); URINE SPECIFIC GRAVITY 1.025; URINE UROBILINOGEN - DIPSTICK 0.2 E.U./dL (0.2)
[2018-06-25 11:11] LABS: URINE LEUK ESTERASE SMALL (NEGATIVE)
[2018-06-25 11:12] LABS: URINE BACTERIA MANY hpf; URINE CLARITY SL CLOUDY; URINE EPITHELIAL CELLS FEW EPI/hpf (0-FEW); URINE RBC 0-2 RBC/hpf (0-5)
[2018-06-25 11:24] LABS: BARBITURATES NEGATIVE (NEGATIVE); COCAINE NEGATIVE (NEGATIVE); METHADONE NEGATIVE (NEGATIVE); OXCYCODONE NEGATIVE (NEGATIVE); TETRAHYDROCANNABIONOL NEGATIVE (NEGATIVE); TRICYLIC ANTIDEPRESSANTS NEGATIVE (NEGATIVE)
[2018-06-25 11:27] LABS: HEMATOCRIT 42.9 % (37.0-47.0); HEMOGLOBIN 14.8 g/dl (12.0-16.0); IMMATURE GRANULOCYTES 0.4 % (0.0-5.0); MEAN CELL VOLUME 88.3 fL CALC (80.0-100.0); MEAN CORPUSCULAR HGB 30.5 pG CALC (26.0-32.0); MEAN CORPUSCULAR HGB CONC 34.5 g/L CALC (32.0-36.0); NEUT# 7.72 thou/uL (2.00-7.15); RED BLOOD COUNT 4.86 mill/uL (4.20-5.60); RED CELL DISTRI WIDTH 12.9 % (11.5-15.5)
[2018-06-25 11:42] LABS: ALBUMIN 4.1 g/dL (3.2-5.0); ALKALINE PHOSPHATASE 98 u/l (38-126); ANION GAP 15 (6-22 (CALC)); BILIRUBIN, TOTAL 0.6 mg/dL (0.0-1.4); BUN 15 mg/dL (7-17); BUN/CREATININE RATIO 25 (12-20 (CALC)); CARBON DIOXIDE 25 mmol/l (22-30); CHLORIDE 104 mmol/l (95-108); CREATININE 0.6 mg/dL (0.5-1.0); GFR > 60 ML/MIN (>=60 (CALC)); GFR FOR AFR.AMER. > 60 ML/MIN (>=60 (CALC)); SGOT/AST 23 u/l (14-36); SGPT/ALT 32 u/l (9-52); SODIUM 139 mmol/l (137-146); TOTAL PROTEIN 7.6 g/dL (6.3-8.2)
[2018-06-25 12:34] VITALS: BP 141/97
[2018-06-25] MEDS ORDERED: REGLAN10 MG PO (12:42)
[2018-06-25] MEDS ORDERED: KEFLEX500 M1 PO (12:42)
== END 2018-06-25 12:51 | disposition home or self-care (01) ==
LOC: ED 10:19
DX: N39.0 Urinary tract infection, site not specified (principal); E11.9 Type 2 diabetes mellitus without complications; E03.9 Hypothyroidism, unspecified; G47.30 Sleep apnea, unspecified; R51 Headache; R11.2 Nausea with vomiting, unspecified; R42 Dizziness and giddiness; B96.1 Klebsiella pneumoniae [K. pneumoniae] as the cause of diseases classified elsewhere

== ENCOUNTER 2018-08-02 02:28 | Emergency (ER) | payer OTHER ==
[~2018-08-02] VITALS: Ht 175.3 cm; Wt 156.8 kg
[~2018-08-02 02:28] MED LIST changes: +KEFLEX500 M1 PO
[2018-08-02 03:25] LABS: IMMATURE GRANULOCYTES 0.5 % (0.0-5.0); MEAN CELL VOLUME 89.5 fL CALC (80.0-100.0); MEAN CORPUSCULAR HGB 30.6 pG CALC (26.0-32.0); MEAN CORPUSCULAR HGB CONC 34.1 g/L CALC (32.0-36.0); NEUT# 12.49 thou/uL (2.00-7.15); RED BLOOD COUNT 4.58 mill/uL (4.20-5.60); RED CELL DISTRI WIDTH 13.2 % (11.5-15.5)
[2018-08-02 03:31] LABS: URINE BILIRUBIN - DIPSTICK NEGATIVE (NEGATIVE); URINE BLOOD DIPSTICK NEGATIVE (NEGATIVE); URINE COLOR YELLOW; URINE GLUCOSE - DIPSTICK NEGATIVE (NEGATIVE); URINE KETONE NEGATIVE (NEGATIVE); URINE PROTEIN - DIPSTICK NEGATIVE (NEG-TRACE); URINE UROBILINOGEN - DIPSTICK 0.2 E.U./dL (0.2)
[2018-08-02 03:32] LABS: URINE CLARITY CLOUDY; URINE LEUK ESTERASE SMALL (NEGATIVE); URINE NITRITE - DIPSTICK POSITIVE (Negative)
[2018-08-02 03:39] LABS: ALKALINE PHOSPHATASE 75 u/l (38-126); AMYLASE 30 u/l (30-110); ANION GAP 16 (6-22 (CALC)); BILIRUBIN, TOTAL 0.7 mg/dL (0.0-1.4); BUN 10 mg/dL (7-17); BUN/CREATININE RATIO 15 (12-20 (CALC)); CARBON DIOXIDE 27 mmol/l (22-30); CHLORIDE 101 mmol/l (95-108); CREATININE 0.6 mg/dL (0.5-1.0); GFR > 60 ML/MIN (>=60 (CALC)); GFR FOR AFR.AMER. > 60 ML/MIN (>=60 (CALC)); LIPASE 55 u/l (23-300); POTASSIUM 4.5 mmol/l (3.5-5.1); SGOT/AST 23 u/l (14-36); SGPT/ALT 36 u/l (9-52); SODIUM 139 mmol/l (137-146); TOTAL PROTEIN 6.8 g/dL (6.3-8.2)
[2018-08-02 03:45] LABS: URINE BACTERIA MANY hpf; URINE RBC 0-2 RBC/hpf (0-5); URINE SQUAMOUS EPITHELIAL CELL FEW EPI/hpf (0-FEW); URINE WBC 20-50 WBC/hpf (0-5)
[2018-08-02 03:46] LABS: URINE AMORPH SEDIMENT FEW hpf (NONE-FEW); URINE MUCUS FEW hpf (NONE-FEW)
[2018-08-02 03:51] LABS: MYOGLOBIN 23 ng/mL (0 - 62)
[2018-08-02] MEDS ORDERED: PHENERGAN25 MG/TAB PO (05:21)
[2018-08-02] MEDS ORDERED: BACTRIM DS1 TAB PO (05:29)
[2018-08-02 05:44] VITALS: BP 96/50
== END 2018-08-02 05:44 | disposition home or self-care (01) ==
LOC: ED 02:28
PROVIDERS: Family Medicine
DX: K52.9 Noninfective gastroenteritis and colitis, unspecified (principal); R07.89 Other chest pain; R10.33 Periumbilical pain; E11.9 Type 2 diabetes mellitus without complications; E03.9 Hypothyroidism, unspecified; J45.909 Unspecified asthma, uncomplicated; G47.30 Sleep apnea, unspecified; R11.2 Nausea with vomiting, unspecified; R50.9 Fever, unspecified

== ENCOUNTER 2018-10-09 19:16 | Emergency (ER) | payer OTHER ==
[~2018-10-09] VITALS: Ht 175.3 cm; Wt 157.4 kg
[~2018-10-09 19:16] MED LIST changes: +BACTRIM DS1 TAB PO
[2018-10-09 20:15] LABS: HEMATOCRIT 38.8 % (37.0-47.0); HEMOGLOBIN 13.6 g/dl (12.0-16.0); IMMATURE GRANULOCYTES 0.6 % (0.0-5.0); MEAN CELL VOLUME 89.2 fL CALC (80.0-100.0); MEAN CORPUSCULAR HGB 31.3 pG CALC (26.0-32.0); MEAN CORPUSCULAR HGB CONC 35.1 g/L CALC (32.0-36.0); NEUT# 4.35 thou/uL (2.00-7.15); RED BLOOD COUNT 4.35 mill/uL (4.20-5.60); RED CELL DISTRI WIDTH 12.8 % (11.5-15.5)
[2018-10-09 20:32] LABS: ALKALINE PHOSPHATASE 70 u/l (38-126); ANION GAP 13 (6-22 (CALC)); BILIRUBIN, TOTAL 0.5 mg/dL (0.0-1.4); BUN 10 mg/dL (7-17); BUN/CREATININE RATIO 20 (12-20 (CALC)); CARBON DIOXIDE 25 mmol/l (22-30); CHLORIDE 104 mmol/l (95-108); CREATININE 0.5 mg/dL (0.5-1.0); GFR > 60 ML/MIN (>=60 (CALC)); GFR FOR AFR.AMER. > 60 ML/MIN (>=60 (CALC)); POTASSIUM 4.4 mmol/l (3.5-5.1); SODIUM 137 mmol/l (137-146); TOTAL PROTEIN 7.2 g/dL (6.3-8.2)
[2018-10-09 20:33] LABS: SGOT/AST 48 u/l (14-36)
--- NOTE | 2018-10-09 20:40 | NUR ---
BREATHING TREATMENT GIVEN USING A MASK. BREATHING TECH. FOR GOOD DEPOSITION TO THE LUNGS.
[2018-10-09] MEDS ORDERED: PREDNISONE10 MG PO (21:34)
[2018-10-09] MEDS ORDERED: ALBUTEROL SUL0.083 % IN (21:34)
[2018-10-09 21:41] VITALS: BP 127/79
== END 2018-10-09 21:48 | disposition home or self-care (01) ==
LOC: ED 19:16
PROVIDERS: Family Medicine
DX: J45.901 Unspecified asthma with (acute) exacerbation (principal); R09.1 Pleurisy; R06.02 Shortness of breath; R05 Cough; R09.81 Nasal congestion; R50.9 Fever, unspecified

== ENCOUNTER → 2019-01-07 | Outpatient (REF) | payer OTHER ==
[~2019-01-07] MED LIST changes: +PERCOCET1 TA2 PO; +PREDNISONE10 MG PO; +TAM75CAP PO; +TRAMADOL HCL50 MG PO
[2019-01-07 09:06] LABS: HEMATOCRIT 40.6 % (37.0-47.0); IMMATURE GRANULOCYTES 0.2 % (0.0-5.0); MEAN CELL VOLUME 88.5 fL CALC (80.0-100.0); MEAN CORPUSCULAR HGB 30.5 pG CALC (26.0-32.0); MEAN CORPUSCULAR HGB CONC 34.5 g/L CALC (32.0-36.0); NEUT# 6.37 thou/uL (2.00-7.15); RED BLOOD COUNT 4.59 mill/uL (4.20-5.60)
== END | disposition home or self-care (01) ==
LOC: LAB 08:42
PROVIDERS: ATTEND Optometrist
DX: M31.6 Other giant cell arteritis (principal)

== ENCOUNTER 2019-01-12 06:08 | Day surgery (SDC) | payer OTHER ==
[~2019-01-12 06:08] MED LIST changes: -TAM75CAP PO; -TRAMADOL HCL50 MG PO
[2019-01-12 08:00] VITALS: BP 108/63
[2019-01-12] MEDS ORDERED: TRAMADOL HCL50 MG PO (08:19)
== END 2019-01-12 08:25 | disposition home or self-care (01) ==
LOC: ORM 06:08
PROVIDERS: ATTEND Anesthesiology Pain Medicine
DX: M46.1 Sacroiliitis, not elsewhere classified (principal); M54.5 Low back pain

== ENCOUNTER 2019-01-27 11:22 | Emergency (ER) | payer OTHER ==
[~2019-01-27] VITALS: Ht 175.3 cm; Wt 147.7 kg
[~2019-01-27 11:22] MED LIST changes: +TRAMADOL HCL50 MG PO
[2019-01-27 14:33] VITALS: BP 136/89
== END 2019-01-27 14:30 | disposition home or self-care (01) ==
LOC: ED 11:22
DX: M54.5 Low back pain (principal); M79.604 Pain in right leg; S39.012A Strain of muscle, fascia and tendon of lower back, initial encounter; R20.0 Anesthesia of skin

== ENCOUNTER 2019-02-02 06:00 | Day surgery (SDC) | payer OTHER ==
[~2019-02-02] VITALS: Ht 175.3 cm; Wt 147.4 kg
[2019-02-02 08:36] VITALS: BP 121/69
[2019-02-02] MEDS ORDERED: TAM75CAP PO (19:50)
[2019-02-02] MEDS ORDERED: ULTRAM50 M1 PO (19:50)
== END 2019-02-02 09:10 | disposition home or self-care (01) ==
LOC: ORM 06:00
PROVIDERS: ATTEND Anesthesiology Pain Medicine
DX: M54.5 Low back pain (principal); J10.1 Influenza due to other identified influenza virus with other respiratory manifestations; E11.65 Type 2 diabetes mellitus with hyperglycemia; Z79.4 Long term (current) use of insulin
CPT/HCPCS: J1100

== ENCOUNTER 2019-02-02 17:18 | Emergency (ER) | payer OTHER ==
[~2019-02-02] VITALS: Ht 175.3 cm; Wt 147.7 kg
[2019-02-02 18:13] LABS: HEMATOCRIT 42.2 % (37.0-47.0); HEMOGLOBIN 14.7 g/dl (12.0-16.0); IMMATURE GRANULOCYTES 0.6 % (0.0-5.0); MEAN CELL VOLUME 88.3 fL CALC (80.0-100.0); MEAN CORPUSCULAR HGB 30.8 pG CALC (26.0-32.0); MEAN CORPUSCULAR HGB CONC 34.8 g/L CALC (32.0-36.0); NEUT# 13.5 thou/uL (2.00-7.15); RED BLOOD COUNT 4.78 mill/uL (4.20-5.60); RED CELL DISTRI WIDTH 13.2 % (11.5-15.5)
[2019-02-02 18:40] LABS: ALBUMIN 4.3 g/dL (3.2-5.0); ALKALINE PHOSPHATASE 89 u/l (38-126); ANION GAP 19 (6-22 (CALC)); BILIRUBIN, TOTAL 0.4 mg/dL (0.0-1.4); BUN 15 mg/dL (7-17); BUN/CREATININE RATIO 31 (12-20 (CALC)); CARBON DIOXIDE 18 mmol/l (22-30); CHLORIDE 104 mmol/l (95-108); CREATININE 0.5 mg/dL (0.5-1.0); GFR > 60 ML/MIN (>=60 (CALC)); GFR FOR AFR.AMER. > 60 ML/MIN (>=60 (CALC)); LIPASE 59 u/l (23-300); POTASSIUM 4.6 mmol/l (3.5-5.1); SGOT/AST 22 u/l (14-36); SODIUM 136 mmol/l (137-146); TOTAL PROTEIN 7.3 g/dL (6.3-8.2)
[2019-02-02 18:43] LABS: URINE BILIRUBIN - DIPSTICK NEGATIVE (NEGATIVE); URINE BLOOD DIPSTICK NEGATIVE (NEGATIVE); URINE COLOR YELLOW; URINE GLUCOSE - DIPSTICK >=1000 mg/dL (NEGATIVE); URINE KETONE 15 mg/dL (NEGATIVE); URINE LEUK ESTERASE NEGATIVE (NEGATIVE); URINE NITRITE - DIPSTICK NEGATIVE (Negative); URINE PROTEIN - DIPSTICK NEGATIVE (NEG-TRACE); URINE UROBILINOGEN - DIPSTICK 0.2 E.U./dL (0.2)
[2019-02-02] MEDS ORDERED: TAM75CAP PO (19:50)
[2019-02-02] MEDS ORDERED: ULTRAM50 M1 PO (19:50)
[2019-02-02 20:02] VITALS: BP 136/94
== END 2019-02-02 20:10 | disposition home or self-care (01) ==
LOC: ED 17:18
PROVIDERS: Family Medicine
DX: J10.1 Influenza due to other identified influenza virus with other respiratory manifestations (principal); E11.65 Type 2 diabetes mellitus with hyperglycemia; Z79.4 Long term (current) use of insulin

== ENCOUNTER 2019-05-25 06:24 | Day surgery (SDC) | payer OTHER ==
[~2019-05-25 06:24] MED LIST changes: +TAM75CAP PO
[2019-05-25 06:52] LABS: BARBITURATES NEGATIVE (NEGATIVE); COCAINE NEGATIVE (NEGATIVE); METHADONE NEGATIVE (NEGATIVE); OXCYCODONE NEGATIVE (NEGATIVE); TETRAHYDROCANNABIONOL NEGATIVE (NEGATIVE); TRICYLIC ANTIDEPRESSANTS NEGATIVE (NEGATIVE)
[2019-05-25 09:05] VITALS: BP 98/65
== END 2019-05-25 09:40 | disposition home or self-care (01) ==
LOC: ORM 06:24
PROVIDERS: ATTEND Anesthesiology Pain Medicine
DX: M54.6 Pain in thoracic spine (principal); M54.5 Low back pain

== ENCOUNTER 2019-05-28 00:30 | Observation (INO) | payer OTHER ==
[~2019-05-28] VITALS: Ht 175.3 cm; Wt 152.9 kg
[2019-05-28] MEDS ORDERED: VICTOZA18 MG/3 ML SC (01:02)
[2019-05-28] MEDS ORDERED: METFORMIN1000 MG PO (01:03)
[2019-05-28 01:04] LABS: HEMOGLOBIN 14.3 g/dl (12.0-16.0); IMMATURE GRANULOCYTES 0.8 % (0.0-5.0); MEAN CELL VOLUME 89.9 fL CALC (80.0-100.0); MEAN CORPUSCULAR HGB 30.6 pG CALC (26.0-32.0); NEUT# 6.97 thou/uL (2.00-7.15); RED BLOOD COUNT 4.67 mill/uL (4.20-5.60); RED CELL DISTRI WIDTH 12.1 % (11.5-15.5)
[2019-05-28 01:08] LABS: URINE BILIRUBIN - DIPSTICK NEGATIVE (NEGATIVE); URINE BLOOD DIPSTICK NEGATIVE (NEGATIVE); URINE COLOR YELLOW; URINE GLUCOSE - DIPSTICK >=1000 mg/dL (NEGATIVE); URINE KETONE TRACE mg/dL (NEGATIVE); URINE LEUK ESTERASE NEGATIVE (NEGATIVE); URINE NITRITE - DIPSTICK NEGATIVE (Negative); URINE PROTEIN - DIPSTICK NEGATIVE (NEG-TRACE); URINE SPECIFIC GRAVITY <=1.005; URINE UROBILINOGEN - DIPSTICK 0.2 E.U./dL (0.2)
[2019-05-28 01:16] LABS: ALKALINE PHOSPHATASE 87 u/l (38-126); AMYLASE 53 u/l (30-110); ANION GAP 19 (6-22 (CALC)); BILIRUBIN, TOTAL 0.3 mg/dL (0.0-1.4); BUN 18 mg/dL (7-17); BUN/CREATININE RATIO 30 (12-20 (CALC)); CARBON DIOXIDE 21 mmol/l (22-30); CHLORIDE 100 mmol/l (95-108); CREATININE 0.6 mg/dL (0.5-1.0); GFR > 60 ML/MIN (>=60 (CALC)); GFR FOR AFR.AMER. > 60 ML/MIN (>=60 (CALC)); LIPASE 90 u/l (23-300); POTASSIUM 4.1 mmol/l (3.5-5.1); SGOT/AST 20 u/l (14-36); SODIUM 135 mmol/l (137-146)
[2019-05-28 01:28] LABS: MYOGLOBIN 18 ng/mL (0 - 62)
[2019-05-28 03:18] VITALS: BP 107/57
[2019-05-28 08:00] VITALS: BP 116/70
[2019-05-28 10:00] VITALS: BP 113/61
[2019-05-28] MEDS ORDERED: ZPAK PO (10:34)
[2019-05-28 12:30] VITALS: BP 110/59
== END 2019-05-28 13:29 | disposition home or self-care (01) ==
LOC: ED 00:30 → ED-I 02:16 → ED 02:34 → ICU 02:35
PROVIDERS: Emergency Medicine; ADMIT Internal Medicine; ATTEND Internal Medicine
DX: E10.65 Type 1 diabetes mellitus with hyperglycemia (principal); T50.995A Adverse effect of other drugs, medicaments and biological substances, initial encounter; I10 Essential (primary) hypertension; E03.9 Hypothyroidism, unspecified; E66.01 Morbid (severe) obesity due to excess calories; G47.30 Sleep apnea, unspecified; M51.9 Unspecified thoracic, thoracolumbar and lumbosacral intervertebral disc disorder; Z79.4 Long term (current) use of insulin

== ENCOUNTER 2019-08-06 23:18 | Emergency (ER) | payer OTHER ==
[~2019-08-06] VITALS: Ht 175.3 cm; Wt 151.0 kg
[~2019-08-06 23:18] MED LIST changes: +METFORMIN1000 MG PO; +VICTOZA18 MG/3 ML SC; +ZPAK PO
[2019-08-07 00:16] LABS: HEMATOCRIT 39.6 % (37.0-47.0); HEMOGLOBIN 13.9 g/dl (12.0-16.0); IMMATURE GRANULOCYTES 0.4 % (0.0-5.0); MEAN CELL VOLUME 87.8 fL CALC (80.0-100.0); MEAN CORPUSCULAR HGB 30.8 pG CALC (26.0-32.0); MEAN CORPUSCULAR HGB CONC 35.1 g/L CALC (32.0-36.0); NEUT# 3.14 thou/uL (2.00-7.15); RED BLOOD COUNT 4.51 mill/uL (4.20-5.60); RED CELL DISTRI WIDTH 13.1 % (11.5-15.5)
[2019-08-07 00:40] LABS: URINE BILIRUBIN - DIPSTICK NEGATIVE (NEGATIVE); URINE BLOOD DIPSTICK NEGATIVE (NEGATIVE); URINE COLOR YELLOW; URINE GLUCOSE - DIPSTICK 100 mg/dL (NEGATIVE); URINE KETONE 15 mg/dL (NEGATIVE); URINE LEUK ESTERASE NEGATIVE (Negative); URINE NITRITE - DIPSTICK NEGATIVE (Negative); URINE PROTEIN - DIPSTICK NEGATIVE (NEG-TRACE); URINE SPECIFIC GRAVITY 1.025; URINE UROBILINOGEN - DIPSTICK 0.2 E.U./dL (0.2)
[2019-08-07 00:43] LABS: URINE CLARITY CLEAR
[2019-08-07 00:43] LABS: ALBUMIN 4.1 g/dL (3.2-5.0); ALKALINE PHOSPHATASE 86 u/l (38-126); ANION GAP 14 (6-22 (CALC)); BILIRUBIN, TOTAL 0.5 mg/dL (0.0-1.4); BUN 12 mg/dL (7-17); BUN/CREATININE RATIO 24 (12-20 (CALC)); CARBON DIOXIDE 26 mmol/l (22-30); CHLORIDE 103 mmol/l (95-108); CREATININE 0.5 mg/dL (0.5-1.0); GFR > 60 ML/MIN (>=60 (CALC)); GFR FOR AFR.AMER. > 60 ML/MIN (>=60 (CALC)); POTASSIUM 4.1 mmol/l (3.5-5.1); SGOT/AST 38 u/l (14-36); SODIUM 139 mmol/l (137-146); TOTAL PROTEIN 7.2 g/dL (6.3-8.2)
[2019-08-07 00:56] LABS: MYOGLOBIN 20 ng/mL (0 - 62)
[2019-08-07 02:56] LABS: ACT PARTIAL THROMBO TIME 22.5 SECONDS (20.0-32.5); INTERNATIONAL NORMALIZED RATIO 0.9 RATIO (0.7-1.3); PROTHROMBIN TIME 9.8 SECONDS (9.0-12.5)
[2019-08-07 04:25] VITALS: BP 126/74
== END 2019-08-07 04:25 | disposition short-term general hospital (02) ==
LOC: ED 23:18
PROVIDERS: Emergency Medicine
DX: I26.99 Other pulmonary embolism without acute cor pulmonale (principal); J11.1 Influenza due to unidentified influenza virus with other respiratory manifestations; E11.9 Type 2 diabetes mellitus without complications; Z79.4 Long term (current) use of insulin
CPT/HCPCS: G9019; J1644; Q9967

== ENCOUNTER 2019-09-08 20:01 | Emergency (ER) | payer OTHER ==
[~2019-09-08] VITALS: Ht 175.3 cm; Wt 150.0 kg
[2019-09-08 20:45] LABS: URINE BILIRUBIN - DIPSTICK NEGATIVE (NEGATIVE); URINE BLOOD DIPSTICK LARGE (NEGATIVE); URINE COLOR YELLOW; URINE GLUCOSE - DIPSTICK NEGATIVE (NEGATIVE); URINE KETONE NEGATIVE (NEGATIVE); URINE LEUK ESTERASE NEGATIVE (NEGATIVE); URINE NITRITE - DIPSTICK NEGATIVE (Negative); URINE PH 6.5 (4.5-8.0); URINE PROTEIN - DIPSTICK NEGATIVE (NEG-TRACE); URINE UROBILINOGEN - DIPSTICK 0.2 E.U./dL (0.2)
[2019-09-08 21:00] LABS: URINE SQUAMOUS EPITHELIAL CELL MODERATE EPI/hpf (0-FEW); URINE WBC 0-2 WBC/hpf (0-5)
[2019-09-08 21:04] LABS: HEMATOCRIT 40.2 % (37.0-47.0); IMMATURE GRANULOCYTES 0.2 % (0.0-5.0); MEAN CELL VOLUME 88.5 fL CALC (80.0-100.0); MEAN CORPUSCULAR HGB 30.8 pG CALC (26.0-32.0); MEAN CORPUSCULAR HGB CONC 34.8 g/L CALC (32.0-36.0); NEUT# 4.74 thou/uL (2.00-7.15); RED BLOOD COUNT 4.54 mill/uL (4.20-5.60)
[2019-09-08 21:18] LABS: ALBUMIN 4.2 g/dL (3.2-5.0); ALKALINE PHOSPHATASE 80 u/l (38-126); ANION GAP 14 (6-22 (CALC)); BILIRUBIN, TOTAL 0.3 mg/dL (0.0-1.4); BUN 7 mg/dL (7-17); BUN/CREATININE RATIO 14 (12-20 (CALC)); CARBON DIOXIDE 25 mmol/l (22-30); CHLORIDE 104 mmol/l (95-108); CREATININE 0.5 mg/dL (0.5-1.0); GFR > 60 ML/MIN (>=60 (CALC)); GFR FOR AFR.AMER. > 60 ML/MIN (>=60 (CALC)); POTASSIUM 3.7 mmol/l (3.5-5.1); SGOT/AST 29 u/l (14-36); SODIUM 138 mmol/l (137-146); TOTAL PROTEIN 7.5 g/dL (6.3-8.2)
[2019-09-08 22:25] VITALS: BP 120/82
[2019-09-08] MEDS ORDERED: FLEXERIL PO (22:31)
[2019-09-08] MEDS ORDERED: REGLAN10 MG PO (22:31)
== END 2019-09-08 23:45 | disposition home or self-care (01) ==
LOC: ED 20:01
DX: G43.909 Migraine, unspecified, not intractable, without status migrainosus (principal); M54.2 Cervicalgia; E11.9 Type 2 diabetes mellitus without complications; Z79.4 Long term (current) use of insulin

== ENCOUNTER 2019-11-16 | Emergency (ER) | payer OTHER ==
[2019-11-16 23:58] LABS: URINE BILIRUBIN - DIPSTICK NEGATIVE (NEGATIVE); URINE COLOR YELLOW; URINE GLUCOSE - DIPSTICK >=1000 mg/dL (NEGATIVE); URINE KETONE TRACE mg/dL (NEGATIVE); URINE LEUK ESTERASE NEGATIVE (NEGATIVE); URINE NITRITE - DIPSTICK NEGATIVE (Negative); URINE PROTEIN - DIPSTICK NEGATIVE (NEG-TRACE); URINE UROBILINOGEN - DIPSTICK 0.2 E.U./dL (0.2)
[2019-11-16 23:59] LABS: BARBITURATES NEGATIVE (NEGATIVE); COCAINE NEGATIVE (NEGATIVE); METHADONE NEGATIVE (NEGATIVE); OXCYCODONE NEGATIVE (NEGATIVE); TETRAHYDROCANNABIONOL NEGATIVE (NEGATIVE); TRICYLIC ANTIDEPRESSANTS NEGATIVE (NEGATIVE); URINE BLOOD DIPSTICK TRACE (NEGATIVE)
[2019-11-17 00:28] LABS: HEMATOCRIT 40.3 % (37.0-47.0); HEMOGLOBIN 14.2 g/dl (12.0-16.0); IMMATURE GRANULOCYTES 0.2 % (0.0-5.0); MEAN CELL VOLUME 87.2 fL CALC (80.0-100.0); MEAN CORPUSCULAR HGB 30.7 pG CALC (26.0-32.0); MEAN CORPUSCULAR HGB CONC 35.2 g/L CALC (32.0-36.0); NEUT# 4.9 thou/uL (2.00-7.15); RED BLOOD COUNT 4.62 mill/uL (4.20-5.60); RED CELL DISTRI WIDTH 12.5 % (11.5-15.5)
[2019-11-17 00:49] LABS: ALBUMIN 4.3 g/dL (3.2-5.0); ALKALINE PHOSPHATASE 88 u/l (38-126); ANION GAP 14 (6-22 (CALC)); BILIRUBIN, TOTAL 0.4 mg/dL (0.0-1.4); BUN 15 mg/dL (7-17); BUN/CREATININE RATIO 27 (12-20 (CALC)); CARBON DIOXIDE 26 mmol/l (22-30); CHLORIDE 101 mmol/l (95-108); CREATININE 0.6 mg/dL (0.5-1.0); GFR > 60 ML/MIN (>=60 (CALC)); GFR FOR AFR.AMER. > 60 ML/MIN (>=60 (CALC)); POTASSIUM 4.1 mmol/l (3.5-5.1); SGOT/AST 23 u/l (14-36); SODIUM 138 mmol/l (137-146); TOTAL PROTEIN 7.8 g/dL (6.3-8.2)
[2019-11-17 01:00] LABS: MYOGLOBIN 23 ng/mL (0 - 62)
[2019-11-21] MEDS ORDERED: CYMBALTA30 MG PO (10:27)
[2019-11-21] MEDS ORDERED: MAGNESIUM OXID400 M3 PO (10:28)
[2019-11-21] MEDS ORDERED: DICYCLOMINE10 MG PO (10:28)
[2019-11-21] MEDS ORDERED: LANTUS SOLOSTAR SC (10:28)
[2019-11-21] MEDS ORDERED: OMEPRAZOLE DR40 MG PO (10:29)
[2019-11-21] MEDS ORDERED: POTASSIUM CHLO10 ME3 PO (10:30)
[2019-11-21] MEDS ORDERED: PROVENTIL HFA IN (10:32)
[2019-11-21] MEDS ORDERED: PROMETHAZINE HC50 MG PO (10:32)
[2020-01-17] MEDS ORDERED: LOSARTAN POTASS50 MG PO (08:52)
[2020-05-01] MEDS ORDERED: TOUJEO SOL300 UNIT/M IM (09:25)
[2020-05-01] MEDS ORDERED: TRAMADOL HCL50 MG PO (10:09)
[2020-05-01] MEDS ORDERED: NEURONTIN800 MG PO (10:13)
== END 2019-11-17 03:04 | disposition home or self-care (01) ==
PROVIDERS: Emergency Medicine
DX: R07.89 Other chest pain (principal); E11.65 Type 2 diabetes mellitus with hyperglycemia; E66.9 Obesity, unspecified; Z86.711 Personal history of pulmonary embolism; Z79.4 Long term (current) use of insulin

== ENCOUNTER 2019-12-24 23:44 | Emergency (ER) | payer OTHER ==
[~2019-12-24 23:44] MED LIST changes: +CYMBALTA30 MG PO; +DICYCLOMINE10 MG PO; +LANTUS SOLOSTAR SC; +MAGNESIUM OXID400 M3 PO; +OMEPRAZOLE DR40 MG PO; +POTASSIUM CHLO10 ME3 PO; +PROMETHAZINE HC50 MG PO
[2020-01-17] MEDS ORDERED: LOSARTAN POTASS50 MG PO (08:52)
[2020-05-01] MEDS ORDERED: TOUJEO SOL300 UNIT/M IM (09:25)
[2020-05-01] MEDS ORDERED: TRAMADOL HCL50 MG PO (10:09)
[2020-05-01] MEDS ORDERED: NEURONTIN800 MG PO (10:13)
== END 2019-12-24 23:50 | disposition left against medical advice (07) ==
LOC: ED 23:44 → LWOBS 23:50 → ED 23:50
DX: Z91.19 Patient's noncompliance with other medical treatment and regimen (principal)

== ENCOUNTER 2020-01-25 | Day surgery (SDC) | payer OTHER ==
[~2020-01-25] MED LIST changes: +LOSARTAN POTASS50 MG PO
[2020-01-25 06:43] LABS: HCG SERUM/URINE (NEG/POS) NEGATIVE (NEGATIVE)
[2020-01-25] MEDS ORDERED: TRAMADOL HCL50 MG PO ×3 (08:53→09:06)
[2020-05-01] MEDS ORDERED: TOUJEO SOL300 UNIT/M IM (09:25)
[2020-05-01] MEDS ORDERED: TRAMADOL HCL50 MG PO (10:09)
[2020-05-01] MEDS ORDERED: NEURONTIN800 MG PO (10:13)
== END 2020-01-25 09:15 | disposition home or self-care (01) ==
PROVIDERS: Anesthesiology Pain Medicine
DX: M54.5 Low back pain (principal); M46.1 Sacroiliitis, not elsewhere classified

== ENCOUNTER 2020-05-26 14:55 | Emergency (ER) | payer OTHER ==
[~2020-05-26] VITALS: Ht 175.3 cm; Wt 135.0 kg
[~2020-05-26 14:55] MED LIST changes: +NEURONTIN800 MG PO; +TOUJEO SOL300 UNIT/M IM
[2020-05-26 15:57] VITALS: BP 140/80
== END 2020-05-26 16:13 | disposition home or self-care (01) ==
LOC: ED 14:55
DX: S91.111A Laceration without foreign body of right great toe without damage to nail, initial encounter (principal); E11.9 Type 2 diabetes mellitus without complications; I48.91 Unspecified atrial fibrillation; W22.8XXA Striking against or struck by other objects, initial encounter; Y93.E5 Activity, floor mopping and cleaning; Y92.000 Kitchen of unspecified non-institutional (private) residence as the place of occurrence of the external cause; Z79.4 Long term (current) use of insulin

== ENCOUNTER 2020-06-16 03:14 | Emergency (ER) | payer OTHER ==
[~2020-06-16] VITALS: Ht 175.3 cm; Wt 135.4 kg
[2020-06-16 03:52] LABS: HEMATOCRIT 40.3 % (37.0-47.0); HEMOGLOBIN 13.6 g/dl (12.0-16.0); IMMATURE GRANULOCYTES 0.2 % (0.0-5.0); MEAN CELL VOLUME 90.4 fL CALC (80.0-100.0); MEAN CORPUSCULAR HGB 30.5 pG CALC (26.0-32.0); MEAN CORPUSCULAR HGB CONC 33.7 g/dL CAL (32.0-36.0); NEUT# 5.04 thou/uL (2.00-7.15); RED BLOOD COUNT 4.46 mill/uL (4.20-5.60); RED CELL DISTRI WIDTH 12.6 % (11.5-15.5)
[2020-06-16 04:10] LABS: ALBUMIN 3.9 g/dL (3.2-5.0); ALKALINE PHOSPHATASE 78 u/l (38-126); ANION GAP 10 (6-22 (CALC)); BILIRUBIN, TOTAL 0.3 mg/dL (0.0-1.4); BUN 11 mg/dL (7-17); BUN/CREATININE RATIO 23 (12-20 (CALC)); CARBON DIOXIDE 27 mmol/l (22-30); CHLORIDE 101 mmol/l (95-108); CREATININE 0.5 mg/dL (0.5-1.0); GFR > 60 ML/MIN (>=60 (CALC)); GFR FOR AFR.AMER. > 60 ML/MIN (>=60 (CALC)); POTASSIUM 3.8 mmol/l (3.5-5.1); SGOT/AST 22 u/l (14-36); SODIUM 134 mmol/l (137-146); TOTAL PROTEIN 6.9 g/dL (6.3-8.2)
[2020-06-16 04:11] LABS: MAGNESIUM 1.7 mg/dL (1.6-2.3)
[2020-06-16 04:21] LABS: MYOGLOBIN 16 ng/mL (0 - 62)
[2020-06-16 04:29] LABS: URINE BILIRUBIN - DIPSTICK NEGATIVE (NEGATIVE); URINE BLOOD DIPSTICK NEGATIVE (NEGATIVE); URINE COLOR YELLOW; URINE GLUCOSE - DIPSTICK NEGATIVE (NEGATIVE); URINE KETONE NEGATIVE (NEGATIVE); URINE LEUK ESTERASE NEGATIVE (NEGATIVE); URINE NITRITE - DIPSTICK NEGATIVE (Negative); URINE PROTEIN - DIPSTICK NEGATIVE (NEG-TRACE); URINE UROBILINOGEN - DIPSTICK 0.2 E.U./dL (0.2)
[2020-06-16 04:42] LABS: TSH, 3RD GENERATION 7.86 uIU/mL (0.47 - 4.68)
[2020-06-16 07:03] VITALS: BP 120/68
== END 2020-06-16 07:03 | disposition home or self-care (01) ==
LOC: ED 03:14
PROVIDERS: Family Medicine
DX: E11.649 Type 2 diabetes mellitus with hypoglycemia without coma (principal); M54.2 Cervicalgia; R07.89 Other chest pain; I48.91 Unspecified atrial fibrillation; Z79.4 Long term (current) use of insulin
CPT/HCPCS: Q9967

== ENCOUNTER 2020-07-07 17:00 | Emergency (ER) | payer OTHER ==
[~2020-07-07] VITALS: Ht 175.3 cm; Wt 135.0 kg
[2020-07-07 17:18] LABS: HEMATOCRIT 41.7 % (37.0-47.0); HEMOGLOBIN 14.1 g/dl (12.0-16.0); IMMATURE GRANULOCYTES 0.6 % (0.0-5.0); MEAN CELL VOLUME 87.8 fL CALC (80.0-100.0); MEAN CORPUSCULAR HGB 29.7 pG CALC (26.0-32.0); MEAN CORPUSCULAR HGB CONC 33.8 g/dL CAL (32.0-36.0); NEUT# 5.7 thou/uL (2.00-7.15); RED BLOOD COUNT 4.75 mill/uL (4.20-5.60); RED CELL DISTRI WIDTH 12.3 % (11.5-15.5)
[2020-07-07] MEDS ORDERED: ADVAIR DISK2 IN (17:20)
[2020-07-07] MEDS ORDERED: LOSARTAN POTAS100 MG PO (17:21)
[2020-07-07] MEDS ORDERED: METFORMIN HCL1000 MG PO (17:22)
[2020-07-07] MEDS ORDERED: HUMALOG KW100 UNIT/M (17:24)
[2020-07-07] MEDS ORDERED: TOUJEO MAX300 UNIT/M SC (17:25)
[2020-07-07] MEDS ORDERED: TRAMADOL HCL50 MG PO (17:27)
[2020-07-07] MEDS ORDERED: PROAIR HFA108 MCG/AC IN (17:29)
[2020-07-07] MEDS ORDERED: PROMETHAZINE12.5 MG PO (17:31)
[2020-07-07] MEDS ORDERED: OMEPRAZOLE DR40 MG PO (17:31)
[2020-07-07] MEDS ORDERED: FUROSEMIDE20 MG PO (17:32)
[2020-07-07] MEDS ORDERED: GABAPENTIN300 M2 PO (17:33)
[2020-07-07] MEDS ORDERED: SINGULAIR10 MG PO (17:34)
[2020-07-07] MEDS ORDERED: ALBUTEROL SUL0.083 % IN (17:34)
[2020-07-07] MEDS ORDERED: NITROGLYCERIN0.4 MG SL (17:36)
[2020-07-07 17:51] LABS: ALBUMIN 4.2 g/dL (3.2-5.0); ALKALINE PHOSPHATASE 93 u/l (38-126); AMYLASE 48 u/l (30-110); ANION GAP 14 (6-22 (CALC)); BILIRUBIN, TOTAL 0.4 mg/dL (0.0-1.4); BUN 11 mg/dL (7-17); BUN/CREATININE RATIO 20 (12-20 (CALC)); CARBON DIOXIDE 26 mmol/l (22-30); CHLORIDE 98 mmol/l (95-108); CREATININE 0.6 mg/dL (0.5-1.0); GFR > 60 ML/MIN (>=60 (CALC)); GFR FOR AFR.AMER. > 60 ML/MIN (>=60 (CALC)); LIPASE 109 u/l (23-300); SGOT/AST 24 u/l (14-36); SODIUM 133 mmol/l (137-146); TOTAL PROTEIN 7.2 g/dL (6.3-8.2)
[2020-07-07 17:53] LABS: POTASSIUM 4.6 mmol/l (3.5-5.1)
[2020-07-07 18:09] LABS: ACT PARTIAL THROMBO TIME 20.7 SECONDS (20.0-32.5); INTERNATIONAL NORMALIZED RATIO 0.9 RATIO (0.7-1.3); PROTHROMBIN TIME 9.3 SECONDS (9.0-12.5)
[2020-07-07 18:53] VITALS: BP 112/60
== END 2020-07-07 18:55 | disposition short-term general hospital (02) ==
LOC: ED 17:00
DX: R07.9 Chest pain, unspecified (principal); E11.65 Type 2 diabetes mellitus with hyperglycemia; J45.909 Unspecified asthma, uncomplicated; I48.91 Unspecified atrial fibrillation; G47.30 Sleep apnea, unspecified; Z98.890 Other specified postprocedural states; Z79.4 Long term (current) use of insulin; R06.02 Shortness of breath
CPT/HCPCS: Q9967

== ENCOUNTER 2020-09-07 11:13 | Emergency (ER) | payer OTHER ==
[~2020-09-07] VITALS: Ht 175.3 cm; Wt 108.0 kg
[~2020-09-07 11:13] MED LIST changes: +ADVAIR DISK2 IN; +FUROSEMIDE20 MG PO; +GABAPENTIN300 M2 PO; +HUMALOG KW100 UNIT/M; +LOSARTAN POTAS100 MG PO; +METFORMIN HCL1000 MG PO; +NITROGLYCERIN0.4 MG SL; +PROAIR HFA108 MCG/AC IN; +PROMETHAZINE12.5 MG PO; +SINGULAIR10 MG PO; +TOUJEO MAX300 UNIT/M SC
[2020-09-07] MEDS ORDERED: ULTRAM50 MG PO (14:08)
[2020-09-07 14:22] VITALS: BP 117/70
== END 2020-09-07 14:24 | disposition home or self-care (01) | DRG 563 ==
LOC: ED 11:13
DX: S29.012A Strain of muscle and tendon of back wall of thorax, initial encounter (principal); S39.012A Strain of muscle, fascia and tendon of lower back, initial encounter; S43.402A Unspecified sprain of left shoulder joint, initial encounter; S50.02XA Contusion of left elbow, initial encounter; S50.312A Abrasion of left elbow, initial encounter; J45.909 Unspecified asthma, uncomplicated; E11.9 Type 2 diabetes mellitus without complications; I48.91 Unspecified atrial fibrillation; V43.52XA Car driver injured in collision with other type car in traffic accident, initial encounter; Z79.4 Long term (current) use of insulin

== ENCOUNTER 2021-02-16 | Emergency (ER) | payer OTHER ==
[2021-02-16 05:41] LABS: HEMATOCRIT 41.4 % (37.0-47.0); HEMOGLOBIN 14.3 g/dl (12.0-16.0); IMMATURE GRANULOCYTES 0.5 % (0.0-5.0); MEAN CELL VOLUME 87.7 fL CALC (80.0-100.0); MEAN CORPUSCULAR HGB 30.3 pG CALC (26.0-32.0); MEAN CORPUSCULAR HGB CONC 34.5 g/dL CAL (32.0-36.0); NEUT# 5.71 thou/uL (2.00-7.15); RED BLOOD COUNT 4.72 mill/uL (4.20-5.60); RED CELL DISTRI WIDTH 13.1 % (11.5-15.5)
[2021-02-16 05:58] LABS: ALBUMIN 3.8 g/dL (3.2-5.0); ALKALINE PHOSPHATASE 79 u/l (38-126); AMYLASE 31 u/l (30-110); ANION GAP 12 (6-22 (CALC)); BUN 10 mg/dL (7-17); BUN/CREATININE RATIO 17 (12-20 (CALC)); CARBON DIOXIDE 27 mmol/l (22-30); CHLORIDE 97 mmol/l (95-108); CREATININE 0.6 mg/dL (0.5-1.0); GFR > 60 ML/MIN (>=60 (CALC)); GFR FOR AFR.AMER. > 60 ML/MIN (>=60 (CALC)); LIPASE 43 u/l (23-300); POTASSIUM 4.2 mmol/l (3.5-5.1); SGOT/AST 19 u/l (14-36); SODIUM 132 mmol/l (137-146); TOTAL PROTEIN 6.7 g/dL (6.3-8.2)
[2021-02-16 06:36] LABS: BILIRUBIN, TOTAL 0.8 mg/dL (0.0-1.4)
[2021-02-16 06:36] LABS: URINE BILIRUBIN - DIPSTICK NEGATIVE (NEGATIVE); URINE BLOOD DIPSTICK NEGATIVE (NEGATIVE); URINE COLOR YELLOW; URINE GLUCOSE - DIPSTICK NEGATIVE (NEGATIVE); URINE KETONE TRACE mg/dL (NEGATIVE); URINE LEUK ESTERASE NEGATIVE (NEGATIVE); URINE PROTEIN - DIPSTICK NEGATIVE (NEG-TRACE); URINE SPECIFIC GRAVITY 1.015; URINE UROBILINOGEN - DIPSTICK 0.2 E.U./dL (0.2)
[2021-02-16 06:39] LABS: URINE NITRITE - DIPSTICK NEGATIVE (Negative)
[2021-02-16] MEDS ORDERED: TAM75CAP PO (08:07)
[2021-02-16] MEDS ORDERED: PHENERGAN25 MG/TAB PO (08:07)
[2021-03-19] MEDS ORDERED: TRAMADOL HCL50 MG PO (13:53)
[2021-03-19] MEDS ORDERED: VISTARIL 50MG C50 M1 PO (13:55)
== END 2021-02-16 08:25 | disposition home or self-care (01) ==
PROVIDERS: Emergency Medicine
DX: J10.1 Influenza due to other identified influenza virus with other respiratory manifestations (principal); E11.9 Type 2 diabetes mellitus without complications; J45.909 Unspecified asthma, uncomplicated; I48.91 Unspecified atrial fibrillation; G47.30 Sleep apnea, unspecified; Z79.4 Long term (current) use of insulin; Z20.822 Contact with and (suspected) exposure to COVID-19
CPT/HCPCS: Q9967; S0164

== ENCOUNTER 2021-03-02 | Emergency (ER) | payer OTHER ==
[2021-03-02] MEDS ORDERED: AMOX/K CLAV875 M1 PO (19:06)
[2021-03-19] MEDS ORDERED: TRAMADOL HCL50 MG PO (13:53)
[2021-03-19] MEDS ORDERED: VISTARIL 50MG C50 M1 PO (13:55)
[2021-09-05] MEDS ORDERED: ULTRAM50 M1 PO (09:25)
[2021-09-05] MEDS ORDERED: NEURONTIN600 MG PO (09:27)
== END 2021-03-02 19:24 | disposition home or self-care (01) ==
DX: J32.9 Chronic sinusitis, unspecified (principal); E11.9 Type 2 diabetes mellitus without complications; J45.909 Unspecified asthma, uncomplicated; I48.91 Unspecified atrial fibrillation; Z79.4 Long term (current) use of insulin; Z20.822 Contact with and (suspected) exposure to COVID-19

== ENCOUNTER 2021-05-23 13:47 | Observation (INO) | payer OTHER ==
[~2021-05-23] VITALS: Ht 175.3 cm; Wt 135.0 kg
[~2021-05-23 13:47] MED LIST changes: +AMOX/K CLAV875 M1 PO; +VISTARIL 50MG C50 M1 PO
--- NOTE | 2021-05-23 13:50 | NUR ---
PT TO ROOM 11 VIA WC ABLE TO STAND AND TRANSFER SELF WITHOUT ASSIST.
--- NOTE | 2021-05-23 15:00 | NUR ---
PT ADVISED OF WAIT TIME FOR TEST RESULTS. REPORTS PAIN IS INTERMITTENT AND NOT IN PAIN AT THIS MOMENT.
[2021-05-23 15:06] LABS: HEMATOCRIT 42.9 % (37.0-47.0); HEMOGLOBIN 14.7 g/dl (12.0-16.0); IMMATURE GRANULOCYTES 0.2 % (0.0-5.0); MEAN CELL VOLUME 89.2 fL CALC (80.0-100.0); MEAN CORPUSCULAR HGB 30.6 pG CALC (26.0-32.0); MEAN CORPUSCULAR HGB CONC 34.3 g/dL CAL (32.0-36.0); NEUT# 5.44 thou/uL (2.00-7.15); RED BLOOD COUNT 4.81 mill/uL (4.20-5.60); RED CELL DISTRI WIDTH 12.7 % (11.5-15.5)
[2021-05-23 15:24] LABS: ALBUMIN 3.6 g/dL (3.2-5.0); ALKALINE PHOSPHATASE 65 u/l (38-126); ANION GAP 10 (6-22 (CALC)); BUN 12 mg/dL (7-17); BUN/CREATININE RATIO 24 (12-20 (CALC)); CARBON DIOXIDE 26 mmol/l (22-30); CHLORIDE 99 mmol/l (95-108); CREATININE 0.5 mg/dL (0.5-1.0); GFR > 60 ML/MIN (>=60 (CALC)); GFR FOR AFR.AMER. > 60 ML/MIN (>=60 (CALC)); POTASSIUM 4.5 mmol/l (3.5-5.1); SGOT/AST 23 u/l (14-36); SODIUM 131 mmol/l (137-146); TOTAL PROTEIN 6.8 g/dL (6.3-8.2)
[2021-05-23 15:28] LABS: BILIRUBIN, TOTAL 0.3 mg/dL (0.0-1.4)
--- NOTE | 2021-05-23 16:00 | NUR ---
PT PROVIDED URINE SPECIMEN WITHOUT ASSIST.
[2021-05-23 17:04] LABS: URINE BILIRUBIN - DIPSTICK NEGATIVE (NEGATIVE); URINE BLOOD DIPSTICK SMALL (NEGATIVE); URINE GLUCOSE - DIPSTICK >=1000 mg/dL (NEGATIVE); URINE KETONE TRACE mg/dL (NEGATIVE); URINE LEUK ESTERASE NEGATIVE (NEGATIVE); URINE PROTEIN - DIPSTICK NEGATIVE (NEG-TRACE); URINE SPECIFIC GRAVITY 1.025; URINE UROBILINOGEN - DIPSTICK 0.2 E.U./dL (0.2)
[2021-05-23 17:05] LABS: URINE COLOR AMBER; URINE NITRITE - DIPSTICK POSITIVE (Negative)
--- NOTE | 2021-05-23 17:08 | NUR ---
PT REPORTS DECREASE IN CHEST PAIN AFTER IV MORPHINE. IV FLUIDS INFUSING SITE HEALTHY. PT AWARE OF PENDING ADMIT.
[2021-05-23 17:14] LABS: URINE SQUAMOUS EPITHELIAL CELL FEW EPI/hpf (0-FEW)
[2021-05-23 20:22] VITALS: BP 117/67
--- NOTE | 2021-05-23 21:00 | NUR ---
RECEIVED PATIENT TO ROOM 263 VIA WC FROM THE ED ESCORTED BY Porfirio PATIENT IS ALERT AND ORIENTED X3. ABLE TO MAKE NEEDS KNOWN. ASSESSMENT COMPLETE. C/O BACK PAIN 7/10 AND CHEST PAIN 2/10. NITRO PATCH TO RIGHT SHOULDER NOTED. SKIN INTACT EXCEPT SMALLABRASION/CUT TO RIGHT HAND FINGER. ORIENTED TO ROOM AND CALL LIGHT SYSTEM. PATIENT REPORTS HAVING BLOOD IN URINE. WANT TO SPEAK WITH M.D. RELATED TO THIS ISSUE. BED IN LOW POSITION. CALL LIGHT WITHIN REACH.
[2021-05-23 23:21] VITALS: BP 117/71
--- NOTE | 2021-05-24 00:59 | NUR ---
PATIENT RESTING WITH EYES CLOSED. PAIN MEDICATINS EFFECTIVE.
[2021-05-24 02:19] LABS: HEMATOCRIT 38.4 % (37.0-47.0); IMMATURE GRANULOCYTES 0.3 % (0.0-5.0); MEAN CELL VOLUME 90.4 fL CALC (80.0-100.0); MEAN CORPUSCULAR HGB 30.6 pG CALC (26.0-32.0); MEAN CORPUSCULAR HGB CONC 33.9 g/dL CAL (32.0-36.0); NEUT# 4.25 thou/uL (2.00-7.15); RED BLOOD COUNT 4.25 mill/uL (4.20-5.60); RED CELL DISTRI WIDTH 12.9 % (11.5-15.5)
[2021-05-24 02:27] LABS: ALBUMIN 3.2 g/dL (3.2-5.0); ALKALINE PHOSPHATASE 59 u/l (38-126); ANION GAP 10 (6-22 (CALC)); BILIRUBIN, TOTAL 0.3 mg/dL (0.0-1.4); BUN 11 mg/dL (7-17); BUN/CREATININE RATIO 24 (12-20 (CALC)); CALCULATED LDLCHOLESTEROL 110 mg/dL (62-129 (CALC)); CARBON DIOXIDE 27 mmol/l (22-30); CHLORIDE 102 mmol/l (95-108); CHOLESTEROL HDL RATIO 5.3 (<4.4 (CALC)); CREATININE 0.4 mg/dL (0.5-1.0); GFR > 60 ML/MIN (>=60 (CALC)); GFR FOR AFR.AMER. > 60 ML/MIN (>=60 (CALC)); HDL CHOLESTEROL 35 mg/dL (>=40); MAGNESIUM 1.5 mg/dL (1.6-2.3); POTASSIUM 4.5 mmol/l (3.5-5.1); SGOT/AST 19 u/l (14-36); SODIUM 134 mmol/l (137-146); TOTAL CHOLESTEROL 187 mg/dl (0-199); TOTAL TRIGLYCERIDES 209 mg/dl (30-149); VLDL CHOLESTROL 42 mg/dl (1-41 (CALC))
[2021-05-24 04:00] VITALS: BP 108/64
--- NOTE | 2021-05-24 05:11 | NUR ---
RESTING WITH EYES CLOSED. RESPIRATIONS NONLABORED.
--- NOTE | 2021-05-24 06:58 | NUR ---
REPORT FROM TATE [facility]. ASSUMED PT CARE.
[2021-05-24 07:24] VITALS: BP 108/61
--- NOTE | 2021-05-24 08:02 | NUR ---
REPORT FROM [facility]. PT RESTING IN BED. WAKES EASILY. ALERT AND ORIENTED X4. NO APPARENT DISTRESS NOTED. RESPIRATIONS EVEN AND UNLABORED. IV SITE APPEARS HEALTHY WITH IVF INFUSING. PT DENIES ANY PAIN OR DISCOMFORT. SYSTEMS ADMINISTRATOR IN PLACE. DISCUSSED POC AND SAFETY PRECAUTIONS. CALL LIGHT WITHIN REACH. WILL CONTINUE TO MONITOR.
[2021-05-24] MEDS ORDERED: FLEXERIL5 M1 PO (11:21)
[2021-05-24] MEDS ORDERED: PROTONIX40 M2 PO (11:22)
[2021-05-24] MEDS ORDERED: BACTRIM DS1 TAB PO (11:25)
[2021-05-24 12:00] VITALS: BP 129/71
--- NOTE | 2021-05-24 12:55 | NUR ---
IV site discontinued, cath intact. No edema , no redness, voices no discomfort.
--- NOTE | 2021-05-24 13:01 | NUR ---
Discharge instructions given. Patient verbalizes understanding of same. Discharged in stable condition via Ambulatory to Home with family. All belongings sent with pt.
== END 2021-05-24 13:03 | disposition home or self-care (01) ==
LOC: ED 13:47 → ED-I 18:18 → ED 18:31 → MS2 18:32
PROVIDERS: Nurse Practitioner; ADMIT Internal Medicine; ATTEND Internal Medicine
DX: R07.9 Chest pain, unspecified (principal); K21.9 Gastro-esophageal reflux disease without esophagitis; E11.65 Type 2 diabetes mellitus with hyperglycemia; N39.0 Urinary tract infection, site not specified; E87.1 Hypo-osmolality and hyponatremia; E83.42 Hypomagnesemia; I48.91 Unspecified atrial fibrillation; J45.909 Unspecified asthma, uncomplicated; E03.9 Hypothyroidism, unspecified; M54.9 Dorsalgia, unspecified; G89.29 Other chronic pain; G47.30 Sleep apnea, unspecified; Z79.4 Long term (current) use of insulin; Z82.49 Family history of ischemic heart disease and other diseases of the circulatory system; Z20.822 Contact with and (suspected) exposure to COVID-19
CPT/HCPCS: G0378; J1650; J3475

== ENCOUNTER 2021-06-07 10:07 | Emergency (ER) | payer OTHER ==
[~2021-06-07] VITALS: Ht 175.3 cm; Wt 135.4 kg
[~2021-06-07 10:07] MED LIST changes: +FLEXERIL5 M1 PO; +PROTONIX40 M2 PO
[2021-06-07] MEDS ORDERED: HYDROCORTISONE2.5 % EX (10:38)
[2021-06-07 10:49] VITALS: BP 123/74
== END 2021-06-07 10:55 | disposition home or self-care (01) ==
LOC: ED 10:07
DX: L23.6 Allergic contact dermatitis due to food in contact with the skin (principal); L23.2 Allergic contact dermatitis due to cosmetics; J45.909 Unspecified asthma, uncomplicated; E11.9 Type 2 diabetes mellitus without complications; I48.91 Unspecified atrial fibrillation; I47.1 Supraventricular tachycardia; E66.01 Morbid (severe) obesity due to excess calories; Z79.4 Long term (current) use of insulin; Z88.8 Allergy status to other drugs, medicaments and biological substances

== ENCOUNTER 2021-06-27 22:41 | Emergency (ER) | payer OTHER ==
[~2021-06-27 22:41] MED LIST changes: +HYDROCORTISONE2.5 % EX
[2021-09-05] MEDS ORDERED: ULTRAM50 M1 PO (09:25)
[2021-09-05] MEDS ORDERED: NEURONTIN600 MG PO (09:27)
== END 2021-06-27 22:47 | disposition left against medical advice (07) | DRG 951 ==
LOC: ED 22:41 → LWOBS 22:47
DX: Z53.21 Procedure and treatment not carried out due to patient leaving prior to being seen by health care provider (principal)

== ENCOUNTER 2021-07-11 13:19 | Emergency (ER) | payer OTHER ==
[~2021-07-11] VITALS: Ht 175.3 cm; Wt 135.0 kg
[2021-07-11 14:06] LABS: HEMATOCRIT 41.8 % (37.0-47.0); HEMOGLOBIN 14.5 g/dl (12.0-16.0); MEAN CELL VOLUME 89.1 fL CALC (80.0-100.0); MEAN CORPUSCULAR HGB 30.9 pG CALC (26.0-32.0); MEAN CORPUSCULAR HGB CONC 34.7 g/dL CAL (32.0-36.0); NEUT# 4.13 thou/uL (2.00-7.15); RED BLOOD COUNT 4.69 mill/uL (4.20-5.60)
[2021-07-11 14:18] LABS: ALBUMIN 3.8 g/dL (3.2-5.0); ALKALINE PHOSPHATASE 71 u/l (38-126); ANION GAP 12 (6-22 (CALC)); BILIRUBIN, TOTAL 0.3 mg/dL (0.0-1.4); BUN 11 mg/dL (7-17); BUN/CREATININE RATIO 24 (12-20 (CALC)); CARBON DIOXIDE 28 mmol/l (22-30); CHLORIDE 97 mmol/l (95-108); CREATININE 0.5 mg/dL (0.5-1.0); GFR > 60 ML/MIN (>=60 (CALC)); GFR FOR AFR.AMER. > 60 ML/MIN (>=60 (CALC)); POTASSIUM 4.5 mmol/l (3.5-5.1); SGOT/AST 19 u/l (14-36); SODIUM 132 mmol/l (137-146); TOTAL PROTEIN 6.6 g/dL (6.3-8.2)
[2021-07-11 15:15] LABS: URINE BILIRUBIN - DIPSTICK NEGATIVE (NEGATIVE); URINE BLOOD DIPSTICK NEGATIVE (NEGATIVE); URINE COLOR YELLOW; URINE GLUCOSE - DIPSTICK >=1000 mg/dL (NEGATIVE); URINE KETONE TRACE mg/dL (NEGATIVE); URINE LEUK ESTERASE NEGATIVE (NEGATIVE); URINE PROTEIN - DIPSTICK NEGATIVE (NEG-TRACE); URINE UROBILINOGEN - DIPSTICK 0.2 E.U./dL (0.2)
[2021-07-11 15:18] LABS: URINE NITRITE - DIPSTICK NEGATIVE (Negative)
[2021-07-11 16:14] VITALS: BP 118/91
[2021-09-05] MEDS ORDERED: ULTRAM50 M1 PO (09:25)
[2021-09-05] MEDS ORDERED: NEURONTIN600 MG PO (09:27)
== END 2021-07-11 16:14 | disposition home or self-care (01) ==
LOC: ED 13:19
DX: E11.65 Type 2 diabetes mellitus with hyperglycemia (principal); J45.909 Unspecified asthma, uncomplicated; I48.91 Unspecified atrial fibrillation; E66.01 Morbid (severe) obesity due to excess calories; Z68.41 Body mass index [BMI] 40.0-44.9, adult; Z79.4 Long term (current) use of insulin

== ENCOUNTER 2021-08-21 09:46 | Emergency (ER) | payer OTHER ==
[~2021-08-21] VITALS: Ht 175.3 cm; Wt 142.0 kg
[2021-08-21] MEDS ORDERED: METOPROL TAR25 MG PO (10:10)
[2021-08-21] MEDS ORDERED: ADVAIR DISK1 INH (10:11)
[2021-08-21 10:14] LABS: HEMATOCRIT 41.5 % (37.0-47.0); HEMOGLOBIN 14.2 g/dl (12.0-16.0); IMMATURE GRANULOCYTES 0.4 % (0.0-5.0); MEAN CELL VOLUME 90.8 fL CALC (80.0-100.0); MEAN CORPUSCULAR HGB 31.1 pG CALC (26.0-32.0); MEAN CORPUSCULAR HGB CONC 34.2 g/dL CAL (32.0-36.0); NEUT# 4.87 thou/uL (2.00-7.15); RED BLOOD COUNT 4.57 mill/uL (4.20-5.60); RED CELL DISTRI WIDTH 13.2 % (11.5-15.5)
[2021-08-21 10:24] LABS: ALBUMIN 3.7 g/dL (3.2-5.0); ALKALINE PHOSPHATASE 71 u/l (38-126); AMYLASE 50 u/l (30-110); ANION GAP 11 (6-22 (CALC)); BILIRUBIN, TOTAL 0.8 mg/dL (0.0-1.4); BUN 9 mg/dL (7-17); BUN/CREATININE RATIO 24 (12-20 (CALC)); CARBON DIOXIDE 25 mmol/l (22-30); CHLORIDE 101 mmol/l (95-108); CREATININE 0.4 mg/dL (0.5-1.0); GFR > 60 ML/MIN (>=60 (CALC)); GFR FOR AFR.AMER. > 60 ML/MIN (>=60 (CALC)); LIPASE 63 u/l (23-300); POTASSIUM 4.2 mmol/l (3.5-5.1); SGOT/AST 29 u/l (14-36); SODIUM 133 mmol/l (137-146); TOTAL PROTEIN 6.8 g/dL (6.3-8.2)
[2021-08-21 11:13] LABS: URINE BILIRUBIN - DIPSTICK NEGATIVE (NEGATIVE); URINE BLOOD DIPSTICK NEGATIVE (NEGATIVE); URINE COLOR YELLOW; URINE GLUCOSE - DIPSTICK >=1000 mg/dL (NEGATIVE); URINE KETONE 40 mg/dL (NEGATIVE); URINE LEUK ESTERASE NEGATIVE (NEGATIVE); URINE NITRITE - DIPSTICK NEGATIVE (Negative); URINE PROTEIN - DIPSTICK NEGATIVE (NEG-TRACE); URINE UROBILINOGEN - DIPSTICK 0.2 E.U./dL (0.2)
[2021-08-21] MEDS ORDERED: ULTRAM50 M1 PO (13:03)
[2021-08-21] MEDS ORDERED: CYCLOBENZAPRINE10 MG PO (13:03)
[2021-08-21 13:08] VITALS: BP 125/71
== END 2021-08-21 13:22 | disposition home or self-care (01) ==
LOC: ED 09:46
PROVIDERS: Emergency Medicine
DX: M54.41 Lumbago with sciatica, right side (principal); I10 Essential (primary) hypertension; E11.9 Type 2 diabetes mellitus without complications; Z79.84 Long term (current) use of oral hypoglycemic drugs; Z79.4 Long term (current) use of insulin
CPT/HCPCS: S0164

== ENCOUNTER 2021-11-20 11:12 | Emergency (ER) | payer OTHER ==
[~2021-11-20] VITALS: Ht 175.3 cm; Wt 125.9 kg
[~2021-11-20 11:12] MED LIST changes: +CYCLOBENZAPRINE10 MG PO; +METOPROL TAR25 MG PO; +NEURONTIN600 MG PO
[2021-11-20 12:28] LABS: HEMATOCRIT 46.5 % (37.0-47.0); HEMOGLOBIN 16.1 g/dl (12.0-16.0); IMMATURE GRANULOCYTES 0.4 % (0.0-5.0); MEAN CELL VOLUME 87.6 fL CALC (80.0-100.0); MEAN CORPUSCULAR HGB 30.3 pG CALC (26.0-32.0); MEAN CORPUSCULAR HGB CONC 34.6 g/dL CAL (32.0-36.0); NEUT# 6.12 thou/uL (2.00-7.15); RED BLOOD COUNT 5.31 mill/uL (4.20-5.60); RED CELL DISTRI WIDTH 12.7 % (11.5-15.5)
[2021-11-20 12:37] LABS: ALBUMIN 4.4 g/dL (3.2-5.0); ALKALINE PHOSPHATASE 95 u/l (38-126); ANION GAP 14 (6-22 (CALC)); BILIRUBIN, TOTAL 0.7 mg/dL (0.0-1.4); BUN 10 mg/dL (7-17); BUN/CREATININE RATIO 16 (12-20 (CALC)); CARBON DIOXIDE 23 mmol/l (22-30); CHLORIDE 102 mmol/l (95-108); CREATININE 0.6 mg/dL (0.5-1.0); GFR > 60 ML/MIN (>=60 (CALC)); GFR FOR AFR.AMER. > 60 ML/MIN (>=60 (CALC)); POTASSIUM 4.1 mmol/l (3.5-5.1); SGOT/AST 31 u/l (14-36); SODIUM 136 mmol/l (137-146); TOTAL PROTEIN 7.8 g/dL (6.3-8.2)
[2021-11-20] MEDS ORDERED: PROMETHAZINE HY25 M1 PO (13:16)
[2021-11-20 13:36] VITALS: BP 139/84
== END 2021-11-20 13:39 | disposition home or self-care (01) ==
LOC: ED 11:12
PROVIDERS: Family Medicine
DX: U07.1 COVID-19 (principal); I10 Essential (primary) hypertension; E11.9 Type 2 diabetes mellitus without complications; E66.9 Obesity, unspecified; Z79.84 Long term (current) use of oral hypoglycemic drugs; Z79.4 Long term (current) use of insulin

== ENCOUNTER 2022-02-18 06:40 | Observation (INO) | payer OTHER ==
[~2022-02-18] VITALS: Ht 175.3 cm; Wt 135.0 kg
[2022-02-18] VITALS (14 sets, daily range): BP systolic 91–127; BP diastolic 50–94
[~2022-02-18 06:40] MED LIST changes: +PROMETHAZINE HY25 M1 PO
[2022-02-18 07:17] LABS: HEMATOCRIT 41.2 % (37.0-47.0); HEMOGLOBIN 14.3 g/dl (12.0-16.0); IMMATURE GRANULOCYTES 0.1 % (0.0-5.0); MEAN CELL VOLUME 89.4 fL CALC (80.0-100.0); MEAN CORPUSCULAR HGB CONC 34.7 g/dL CAL (32.0-36.0); NEUT# 5.38 thou/uL (2.00-7.15); RED BLOOD COUNT 4.61 mill/uL (4.20-5.60); RED CELL DISTRI WIDTH 12.9 % (11.5-15.5)
[2022-02-18 07:35] LABS: ALBUMIN 3.9 g/dL (3.2-5.0); ALKALINE PHOSPHATASE 86 u/l (38-126); ANION GAP 9 (6-22 (CALC)); BILIRUBIN, TOTAL 0.5 mg/dL (0.0-1.4); BUN 9 mg/dL (7-17); BUN/CREATININE RATIO 17 (12-20 (CALC)); CARBON DIOXIDE 25 mmol/l (22-30); CHLORIDE 105 mmol/l (95-108); CREATININE 0.5 mg/dL (0.5-1.0); ETHYL ALCOHOL 0 mg/dl (0-30); GFR > 60 ML/MIN (>=60 (CALC)); GFR FOR AFR.AMER. > 60 ML/MIN (>=60 (CALC)); LIPASE 56 u/l (23-300); MAGNESIUM 1.6 mg/dL (1.6-2.3); POTASSIUM 3.9 mmol/l (3.5-5.1); SGOT/AST 27 u/l (14-36); SODIUM 135 mmol/l (137-146); TOTAL PROTEIN 7.2 g/dL (6.3-8.2)
[2022-02-18 07:52] LABS: ACT PARTIAL THROMBO TIME 20.5 SECONDS (20.0-32.5); INTERNATIONAL NORMALIZED RATIO 0.9 RATIO (0.7-1.3); PROTHROMBIN TIME 9.5 SECONDS (9.0-12.5)
[2022-02-18 08:56] LABS: URINE BILIRUBIN - DIPSTICK NEGATIVE (NEGATIVE); URINE BLOOD DIPSTICK NEGATIVE (NEGATIVE); URINE COLOR YELLOW; URINE GLUCOSE - DIPSTICK NEGATIVE (NEGATIVE); URINE KETONE 15 mg/dL (NEGATIVE); URINE PROTEIN - DIPSTICK NEGATIVE (NEG-TRACE); URINE SPECIFIC GRAVITY <=1.005; URINE UROBILINOGEN - DIPSTICK 0.2 E.U./dL (0.2)
[2022-02-18 08:58] LABS: URINE EPITHELIAL CELLS FEW EPI/hpf (0-FEW); URINE LEUK ESTERASE SMALL (NEGATIVE); URINE NITRITE - DIPSTICK NEGATIVE (Negative)
[2022-02-18 08:59] LABS: URINE BACTERIA FEW hpf
[2022-02-18] MEDS ORDERED: JARDIANCE25 MG PO (11:34)
[2022-02-18] MEDS ORDERED: ESTARYLLA1 TAB PO (11:34)
[2022-02-18] MEDS ORDERED: TRULICITY1.5 MG/0.5 SC (11:35)
[2022-02-18] MEDS ORDERED: ACTOS15 MG PO (11:36)
[2022-02-18] MEDS ORDERED: PLAVIX75 MG PO ×2 (11:36→21:01)
[2022-02-18] MEDS ORDERED: LIDOCAINE PATCH 55 % TOP (11:37)
[2022-02-18] MEDS ORDERED: GLYBURIDE5 M1 PO (11:38)
[2022-02-18] MEDS ORDERED: ATORVASTATIN CA10 MG PO (11:41)
[2022-02-18 11:42] LABS: C-REACTIVE PROTEIN 1.7 mg/dL (0-0.9)
[2022-02-18] MEDS ORDERED: POT CHLORIDE20 ME2 PO (11:42)
== END 2022-02-18 20:50 | disposition home or self-care (01) ==
LOC: ED 06:40 → ED-I 08:36 → ED 08:52 → ICU 08:53
PROVIDERS: ADMIT Internal Medicine; ATTEND Internal Medicine
DX: G43.109 Migraine with aura, not intractable, without status migrainosus (principal); E83.42 Hypomagnesemia; I10 Essential (primary) hypertension; E11.9 Type 2 diabetes mellitus without complications; I47.1 Supraventricular tachycardia; E03.9 Hypothyroidism, unspecified; J45.909 Unspecified asthma, uncomplicated; Z79.4 Long term (current) use of insulin; Z79.84 Long term (current) use of oral hypoglycemic drugs; G47.33 Obstructive sleep apnea (adult) (pediatric); Z20.822 Contact with and (suspected) exposure to COVID-19
CPT/HCPCS: Q9967

== ENCOUNTER 2022-02-20 20:34 | Observation (INO) | payer OTHER ==
[2022-02-20] VITALS (19 sets, daily range): BP systolic 77–135; BP diastolic 36–89
[~2022-02-20] VITALS: Ht 175.3 cm; Wt 142.0 kg
[~2022-02-20 20:34] MED LIST changes: +ACTOS15 MG PO; +ATORVASTATIN CA10 MG PO; +ESTARYLLA1 TAB PO; +GLYBURIDE5 M1 PO; +JARDIANCE25 MG PO; +LIDOCAINE PATCH 55 % TOP; +PLAVIX75 MG PO; +POT CHLORIDE20 ME2 PO; +TRULICITY1.5 MG/0.5 SC
[2022-02-20 21:04] LABS: HEMATOCRIT 43.7 % (37.0-47.0); HEMOGLOBIN 14.9 g/dl (12.0-16.0); IMMATURE GRANULOCYTES 0.2 % (0.0-5.0); MEAN CELL VOLUME 89.7 fL CALC (80.0-100.0); MEAN CORPUSCULAR HGB 30.6 pG CALC (26.0-32.0); MEAN CORPUSCULAR HGB CONC 34.1 g/dL CAL (32.0-36.0); NEUT# 11.76 thou/uL (2.00-7.15); RED BLOOD COUNT 4.87 mill/uL (4.20-5.60)
[2022-02-20] MEDS ORDERED: HUMALOG KW100 UNIT/M (21:09)
[2022-02-20 21:14] LABS: ALBUMIN 4.2 g/dL (3.2-5.0); ALKALINE PHOSPHATASE 82 u/l (38-126); AMYLASE 47 u/l (30-110); ANION GAP 14 (6-22 (CALC)); BILIRUBIN, TOTAL 0.5 mg/dL (0.0-1.4); BUN 11 mg/dL (7-17); BUN/CREATININE RATIO 18 (12-20 (CALC)); CARBON DIOXIDE 25 mmol/l (22-30); CHLORIDE 102 mmol/l (95-108); CREATININE 0.6 mg/dL (0.5-1.0); GFR > 60 ML/MIN (>=60 (CALC)); GFR FOR AFR.AMER. > 60 ML/MIN (>=60 (CALC)); SGOT/AST 18 u/l (14-36); SODIUM 137 mmol/l (137-146); TOTAL PROTEIN 7.8 g/dL (6.3-8.2)
[2022-02-20 21:24] LABS: ACT PARTIAL THROMBO TIME 22.4 SECONDS (20.0-32.5); D-DIMER 0.34 mg/L (0.19-0.60); INTERNATIONAL NORMALIZED RATIO 0.9 RATIO (0.7-1.3); PROTHROMBIN TIME 10.3 SECONDS (9.0-12.5)
[2022-02-20 21:25] LABS: MYOGLOBIN 19 ng/mL (0 - 62)
[2022-02-20 22:05] LABS: URINE BILIRUBIN - DIPSTICK NEGATIVE (NEGATIVE); URINE BLOOD DIPSTICK MODERATE (NEGATIVE); URINE COLOR YELLOW; URINE GLUCOSE - DIPSTICK NEGATIVE (NEGATIVE); URINE KETONE NEGATIVE (NEGATIVE); URINE LEUK ESTERASE TRACE (NEGATIVE); URINE PROTEIN - DIPSTICK NEGATIVE (NEG-TRACE); URINE UROBILINOGEN - DIPSTICK 0.2 E.U./dL (0.2)
[2022-02-20 22:10] LABS: URINE NITRITE - DIPSTICK NEGATIVE (Negative)
[2022-02-20 22:14] LABS: URINE BACTERIA FEW hpf; URINE SQUAMOUS EPITHELIAL CELL FEW EPI/hpf (0-FEW)
[2022-02-21] VITALS: BP 100/67
[2022-02-21 00:15] VITALS: BP 97/59
[2022-02-21 00:17] VITALS: BP 99/54
[2022-02-21 00:34] VITALS: BP 98/58
[2022-02-21 04:25] VITALS: BP 111/60
[2022-02-21 10:37] VITALS: BP 106/57
[2022-02-21] MEDS ORDERED: KEFLEX500 MG PO (10:45)
== END 2022-02-21 12:43 | disposition home or self-care (01) ==
LOC: ED 20:34 → ED-I 21:33 → ED 22:09 → MS2 22:10
PROVIDERS: Family Medicine; ADMIT Internal Medicine; ATTEND Internal Medicine
DX: R07.2 Precordial pain (principal); N39.0 Urinary tract infection, site not specified; G43.909 Migraine, unspecified, not intractable, without status migrainosus; I10 Essential (primary) hypertension; E11.9 Type 2 diabetes mellitus without complications; I47.1 Supraventricular tachycardia; G47.30 Sleep apnea, unspecified; E03.9 Hypothyroidism, unspecified; J45.909 Unspecified asthma, uncomplicated; E66.9 Obesity, unspecified; Z79.4 Long term (current) use of insulin; Z79.84 Long term (current) use of oral hypoglycemic drugs; Z79.02 Long term (current) use of antithrombotics/antiplatelets; Z68.42 Body mass index [BMI] 45.0-49.9, adult; Z20.822 Contact with and (suspected) exposure to COVID-19
CPT/HCPCS: G0378; J1650

== ENCOUNTER 2022-09-27 22:25 | Emergency (ER) | payer OTHER ==
[~2022-09-27] VITALS: Ht 175.3 cm; Wt 86.0 kg
[~2022-09-27 22:25] MED LIST changes: +KEFLEX500 MG PO
[2022-09-28 00:12] LABS: HEMATOCRIT 43.1 % (37.0-47.0); HEMOGLOBIN 15.2 g/dl (12.0-16.0); IMMATURE GRANULOCYTES 0.2 % (0.0-5.0); MEAN CELL VOLUME 87.6 fL CALC (80.0-100.0); MEAN CORPUSCULAR HGB 30.9 pG CALC (26.0-32.0); MEAN CORPUSCULAR HGB CONC 35.3 g/dL CAL (32.0-36.0); NEUT# 5.39 thou/uL (2.00-7.15); RED BLOOD COUNT 4.92 mill/uL (4.20-5.60); RED CELL DISTRI WIDTH 12.4 % (11.5-15.5)
[2022-09-28 00:30] LABS: ALBUMIN 4.5 g/dL (3.2-5.0); ALKALINE PHOSPHATASE 96 u/l (38-126); ANION GAP 14 (6-22 (CALC)); BILIRUBIN, TOTAL 0.4 mg/dL (0.0-1.4); BUN 11 mg/dL (7-17); BUN/CREATININE RATIO 19 (12-20 (CALC)); CARBON DIOXIDE 23 mmol/l (22-30); CHLORIDE 101 mmol/l (95-108); CREATININE 0.6 mg/dL (0.5-1.0); GFR FOR AFR.AMER. > 60 ML/MIN (>=60 (CALC)); GFR OTHER RACES > 60 ML/MIN (>=60 (CALC)); SGOT/AST 24 u/l (14-36); SODIUM 135 mmol/l (137-146); TOTAL PROTEIN 7.9 g/dL (6.3-8.2)
[2022-09-28] MEDS ORDERED: CLARITIN10 M1 PO (00:58)
[2022-09-28] MEDS ORDERED: LIDOCAINE HCL VIS2 % TP (00:58)
[2022-09-28] MEDS ORDERED: AMOXICILLIN500 MG PO (00:58)
[2022-09-28 01:01] VITALS: BP 125/68
== END 2022-09-28 01:10 | disposition home or self-care (01) ==
LOC: ED 22:25
PROVIDERS: Emergency Medicine
DX: J02.9 Acute pharyngitis, unspecified (principal); E11.9 Type 2 diabetes mellitus without complications; I10 Essential (primary) hypertension; Z79.84 Long term (current) use of oral hypoglycemic drugs; Z79.4 Long term (current) use of insulin; Z20.822 Contact with and (suspected) exposure to COVID-19

== ENCOUNTER 2022-10-20 11:13 | Emergency (ER) | payer OTHER ==
[2022-10-20] VITALS (7 sets, daily range): BP systolic 109–146; BP diastolic 71–81
[~2022-10-20] VITALS: Ht 175.3 cm; Wt 136.5 kg
[~2022-10-20 11:13] MED LIST changes: +CLARITIN10 M1 PO; +LIDOCAINE HCL VIS2 % TP
[2022-10-20 11:58] LABS: HEMATOCRIT 41.5 % (37.0-47.0); IMMATURE GRANULOCYTES 0.5 % (0.0-5.0); MEAN CELL VOLUME 87.9 fL CALC (80.0-100.0); MEAN CORPUSCULAR HGB 31.8 pG CALC (26.0-32.0); MEAN CORPUSCULAR HGB CONC 36.1 g/dL CAL (32.0-36.0); NEUT# 5.01 thou/uL (2.00-7.15); RED BLOOD COUNT 4.72 mill/uL (4.20-5.60)
[2022-10-20 12:20] LABS: ALKALINE PHOSPHATASE 89 u/l (38-126); ANION GAP 10 (6-22 (CALC)); BILIRUBIN, TOTAL 0.7 mg/dL (0.0-1.4); BUN 9 mg/dL (7-17); BUN/CREATININE RATIO 17 (12-20 (CALC)); CARBON DIOXIDE 27 mmol/l (22-30); CHLORIDE 105 mmol/l (95-108); CREATININE 0.5 mg/dL (0.5-1.0); ETHYL ALCOHOL 0 mg/dl (0-30); GFR FOR AFR.AMER. > 60 ML/MIN (>=60 (CALC)); GFR OTHER RACES > 60 ML/MIN (>=60 (CALC)); LIPASE 42 u/l (23-300); POTASSIUM 3.8 mmol/l (3.5-5.1); SGOT/AST 23 u/l (14-36); SODIUM 138 mmol/l (137-146); TOTAL PROTEIN 7.2 g/dL (6.3-8.2)
[2022-10-20 13:19] LABS: URINE BILIRUBIN - DIPSTICK NEGATIVE (NEGATIVE); URINE BLOOD DIPSTICK NEGATIVE (NEGATIVE); URINE COLOR YELLOW; URINE GLUCOSE - DIPSTICK NEGATIVE (NEGATIVE); URINE KETONE 15 mg/dL (NEGATIVE); URINE LEUK ESTERASE TRACE (NEGATIVE); URINE PROTEIN - DIPSTICK NEGATIVE (NEG-TRACE); URINE UROBILINOGEN - DIPSTICK 0.2 E.U./dL (0.2)
[2022-10-20 13:20] LABS: URINE NITRITE - DIPSTICK NEGATIVE (Negative)
[2022-10-20] MEDS ORDERED: METOPROLOL SUCC50 MG PO (13:21)
[2022-10-20] MEDS ORDERED: LOSARTAN POTASS50 MG PO (13:21)
[2022-10-20] MEDS ORDERED: MECLIZINE 2525 MG PO (14:39)
== END 2022-10-20 15:01 | disposition home or self-care (01) ==
LOC: ED 11:13
PROVIDERS: Family Medicine
DX: R10.11 Right upper quadrant pain (principal); R42 Dizziness and giddiness; I10 Essential (primary) hypertension; E11.9 Type 2 diabetes mellitus without complications; E66.9 Obesity, unspecified; Z79.84 Long term (current) use of oral hypoglycemic drugs; Z79.4 Long term (current) use of insulin
CPT/HCPCS: Q9967

== ENCOUNTER 2022-12-29 10:29 | Emergency (ER) | payer OTHER ==
[~2022-12-29] VITALS: Ht 175.3 cm; Wt 131.0 kg
[~2022-12-29 10:29] MED LIST changes: +MECLIZINE 2525 MG PO; +METOPROLOL SUCC50 MG PO
[2022-12-29 12:22] LABS: URINE BILIRUBIN - DIPSTICK NEGATIVE (NEGATIVE); URINE BLOOD DIPSTICK NEGATIVE (NEGATIVE); URINE COLOR YELLOW; URINE GLUCOSE - DIPSTICK NEGATIVE (NEGATIVE); URINE KETONE 40 mg/dL (NEGATIVE); URINE PROTEIN - DIPSTICK NEGATIVE (NEG-TRACE); URINE UROBILINOGEN - DIPSTICK 0.2 E.U./dL (0.2)
[2022-12-29 12:31] LABS: URINE LEUK ESTERASE SMALL (NEGATIVE); URINE NITRITE - DIPSTICK POSITIVE (Negative)
[2022-12-29 12:32] LABS: URINE BACTERIA MODERATE hpf
[2022-12-29 14:16] LABS: BASO% 0.4 % (0-3); EOS% 0.7 % (0-8); HEMATOCRIT 43.8 % (37.0-47.0); HEMOGLOBIN 15.1 g/dl (12.0-16.0); IMMATURE GRANULOCYTES 0.3 % (0.0-5.0); LYMPH% 10.5 % (15-41); MEAN CELL VOLUME 87.3 fL CALC (80.0-100.0); MEAN CORPUSCULAR HGB 30.1 pG CALC (26.0-32.0); MEAN CORPUSCULAR HGB CONC 34.5 g/dL CAL (32.0-36.0); MONO% 3.4 % (2-13); NEUT# 7.99 thou/uL (2.00-7.15); NEUT% 84.7 % (42-76); RED BLOOD COUNT 5.02 mill/uL (4.20-5.60); RED CELL DISTRI WIDTH 12.1 % (11.5-15.5)
[2022-12-29 14:33] LABS: ALBUMIN 4.3 g/dL (3.2-5.0); ALKALINE PHOSPHATASE 89 u/l (38-126); ANION GAP 12 (6-22 (CALC)); BILIRUBIN, TOTAL 0.3 mg/dL (0.02-1.3); BUN 7 mg/dL (7-17); BUN/CREATININE RATIO 14 (12-20 (CALC)); CARBON DIOXIDE 24 mmol/l (22-30); CHLORIDE 103 mmol/l (95-108); CREATININE 0.5 mg/dL (0.5-1.0); GFR FOR AFR.AMER. > 60 ML/MIN (>=60 (CALC)); GFR OTHER RACES > 60 ML/MIN (>=60 (CALC)); POTASSIUM 4.2 mmol/l (3.5-5.1); SGOT/AST 27 u/l (14-36); SODIUM 134 mmol/l (137-146); TOTAL PROTEIN 7.3 g/dL (6.3-8.2)
[2022-12-29] MEDS ORDERED: ZYRTEC10 MG PO (15:09)
[2022-12-29] MEDS ORDERED: KEFLEX500 MG PO (15:09)
[2022-12-29] MEDS ORDERED: MEDDOSEPAK PO (15:09)
[2022-12-29 16:43] VITALS: BP 125/78
== END 2022-12-29 16:45 | disposition home or self-care (01) ==
LOC: ED 10:29
PROVIDERS: Nurse Practitioner
DX: J45.909 Unspecified asthma, uncomplicated (principal); N39.0 Urinary tract infection, site not specified; I10 Essential (primary) hypertension; E11.9 Type 2 diabetes mellitus without complications; B96.20 Unspecified Escherichia coli [E. coli] as the cause of diseases classified elsewhere; Z79.84 Long term (current) use of oral hypoglycemic drugs; Z79.4 Long term (current) use of insulin

== ENCOUNTER 2023-01-23 05:21 | Emergency (ER) | payer OTHER ==
[2023-01-23] VITALS (13 sets, daily range): BP systolic 87–125; BP diastolic 63–89
[~2023-01-23] VITALS: Ht 175.3 cm; Wt 135.2 kg
[~2023-01-23 05:21] MED LIST changes: +ZYRTEC10 MG PO
[2023-01-23 06:24] LABS: BASO% 0.6 % (0-3); EOS% 2.6 % (0-8); HEMATOCRIT 41.1 % (37.0-47.0); HEMOGLOBIN 13.9 g/dl (12.0-16.0); IMMATURE GRANULOCYTES 0.3 % (0.0-5.0); LYMPH% 31.4 % (15-41); MEAN CELL VOLUME 88.6 fL CALC (80.0-100.0); MEAN CORPUSCULAR HGB CONC 33.8 g/dL CAL (32.0-36.0); MONO% 6.7 % (2-13); NEUT# 4.53 thou/uL (2.00-7.15); NEUT% 58.4 % (42-76); RED BLOOD COUNT 4.64 mill/uL (4.20-5.60); RED CELL DISTRI WIDTH 13.1 % (11.5-15.5)
[2023-01-23 06:31] LABS: PROTHROMBIN TIME 9.5 SECONDS (9.0-12.5)
[2023-01-23 06:32] LABS: ALBUMIN 3.9 g/dL (3.2-5.0); ALKALINE PHOSPHATASE 74 u/l (38-126); AMYLASE 51 u/l (30-110); ANION GAP 9 (6-22 (CALC)); BILIRUBIN, TOTAL 0.3 mg/dL (0.02-1.3); BUN 10 mg/dL (7-17); BUN/CREATININE RATIO 19 (12-20 (CALC)); CARBON DIOXIDE 27 mmol/l (22-30); CHLORIDE 103 mmol/l (95-108); CREATININE 0.5 mg/dL (0.5-1.0); GFR FOR AFR.AMER. > 60 ML/MIN (>=60 (CALC)); GFR OTHER RACES > 60 ML/MIN (>=60 (CALC)); LIPASE 61 u/l (23-300); POTASSIUM 3.9 mmol/l (3.5-5.1); SGOT/AST 21 u/l (14-36); SODIUM 135 mmol/l (137-146); TOTAL PROTEIN 6.8 g/dL (6.3-8.2)
[2023-01-23 07:33] LABS: URINE BILIRUBIN - DIPSTICK NEGATIVE (NEGATIVE); URINE BLOOD DIPSTICK NEGATIVE (NEGATIVE); URINE COLOR YELLOW; URINE GLUCOSE - DIPSTICK 250 mg/dL (NEGATIVE); URINE KETONE TRACE mg/dL (NEGATIVE); URINE LEUK ESTERASE NEGATIVE (NEGATIVE); URINE PROTEIN - DIPSTICK NEGATIVE (NEG-TRACE); URINE SPECIFIC GRAVITY >=1.030; URINE UROBILINOGEN - DIPSTICK 0.2 E.U./dL (0.2)
[2023-01-23 07:42] LABS: URINE NITRITE - DIPSTICK NEGATIVE (Negative)
[2023-01-23] MEDS ORDERED: MECLIZINE 2525 MG PO (08:36)
== END 2023-01-23 08:37 | disposition home or self-care (01) ==
LOC: ED 05:21
PROVIDERS: Emergency Medicine
DX: R42 Dizziness and giddiness (principal); R07.9 Chest pain, unspecified; I10 Essential (primary) hypertension; E11.9 Type 2 diabetes mellitus without complications; J45.909 Unspecified asthma, uncomplicated; Z79.84 Long term (current) use of oral hypoglycemic drugs; Z79.4 Long term (current) use of insulin; Z86.711 Personal history of pulmonary embolism

== ENCOUNTER 2023-06-15 00:13 | Emergency (ER) | payer OTHER ==
[~2023-06-15] VITALS: Ht 175.3 cm; Wt 135.0 kg
[2023-06-15 00:50] VITALS: BP 131/87
[2023-06-15 01:02] VITALS: BP 144/90
[2023-06-15 01:44] LABS: BASO% 0.4 % (0-3); EOS% 1.9 % (0-8); HEMATOCRIT 41.9 % (37.0-47.0); HEMOGLOBIN 14.5 g/dl (12.0-16.0); IMMATURE GRANULOCYTES 0.3 % (0.0-5.0); LYMPH% 27.5 % (15-41); MEAN CELL VOLUME 86.7 fL CALC (80.0-100.0); MEAN CORPUSCULAR HGB CONC 34.6 g/dL CAL (32.0-36.0); MONO% 9.1 % (2-13); NEUT# 5.9 thou/uL (2.00-7.15); NEUT% 60.8 % (42-76); RED BLOOD COUNT 4.83 mill/uL (4.20-5.60); RED CELL DISTRI WIDTH 12.3 % (11.5-15.5)
[2023-06-15 01:56] LABS: ALBUMIN 3.9 g/dL (3.2-5.0); ALKALINE PHOSPHATASE 82 u/l (38-126); ANION GAP 13 (6-22 (CALC)); BILIRUBIN, TOTAL 0.6 mg/dL (0.02-1.3); BUN 10 mg/dL (7-17); BUN/CREATININE RATIO 22 (12-20 (CALC)); CARBON DIOXIDE 23 mmol/l (22-30); CHLORIDE 103 mmol/l (95-108); CREATININE 0.5 mg/dL (0.5-1.0); GFR FOR AFR.AMER. > 60 ML/MIN (>=60 (CALC)); GFR OTHER RACES > 60 ML/MIN (>=60 (CALC)); LIPASE 49 u/l (23-300); POTASSIUM 4.2 mmol/l (3.5-5.1); SGOT/AST 22 u/l (14-36); SODIUM 135 mmol/l (137-146); TOTAL PROTEIN 6.8 g/dL (6.3-8.2)
[2023-06-15 02:33] LABS: URINE COLOR YELLOW; URINE GLUCOSE - DIPSTICK 250 mg/dL (NEGATIVE)
[2023-06-15 02:34] LABS: URINE BLOOD DIPSTICK TRACE-INTACT (NEGATIVE); URINE KETONE TRACE mg/dL (NEGATIVE); URINE LEUK ESTERASE LARGE (NEGATIVE); URINE NITRITE - DIPSTICK POSITIVE (Negative); URINE PH 5.5 (4.5-8.0); URINE PROTEIN - DIPSTICK 30 mg/dL (NEG-TRACE); URINE SPECIFIC GRAVITY 1.025; URINE UROBILINOGEN - DIPSTICK 0.2 E.U./dL (0.2)
[2023-06-15 02:37] LABS: URINE BACTERIA MANY hpf; URINE CALCIUM OXALATE CRYSTALS FEW lpf; URINE RBC 0-2 RBC/hpf (0-5); URINE SQUAMOUS EPITHELIAL CELL MODERATE EPI/hpf (0-FEW); URINE WBC 50-100 WBC/hpf (0-5)
[2023-06-15] MEDS ORDERED: PHENERGAN25 MG RE (03:09)
[2023-06-15] MEDS ORDERED: BACTRIM DS1 TAB PO (03:09)
[2023-06-15 03:24] VITALS: BP 113/82
== END 2023-06-15 03:28 | disposition home or self-care (01) ==
LOC: ED 00:13
PROVIDERS: Family Medicine
DX: R10.11 Right upper quadrant pain (principal); R10.12 Left upper quadrant pain; E11.65 Type 2 diabetes mellitus with hyperglycemia; N39.0 Urinary tract infection, site not specified; B96.89 Other specified bacterial agents as the cause of diseases classified elsewhere; I10 Essential (primary) hypertension; Z79.84 Long term (current) use of oral hypoglycemic drugs; Z79.4 Long term (current) use of insulin; Z20.822 Contact with and (suspected) exposure to COVID-19
CPT/HCPCS: S0164

== ENCOUNTER 2023-11-12 14:08 | Emergency (ER) | payer OTHER ==
[~2023-11-12] VITALS: Ht 175.3 cm; Wt 176.4 kg
[2023-11-12] VITALS (7 sets, daily range): BP systolic 97–127; BP diastolic 51–86
[~2023-11-12 14:08] MED LIST changes: +PHENERGAN25 MG RE
[2023-11-12 14:55] LABS: HEMATOCRIT 41.3 % (37.0-47.0); HEMOGLOBIN 14.4 g/dl (12.0-16.0); IMMATURE GRANULOCYTES 0.3 % (0.0-5.0); LYMPH% 37.8 % (15-41); MEAN CELL VOLUME 88.6 fL CALC (80.0-100.0); MEAN CORPUSCULAR HGB 30.9 pG CALC (26.0-32.0); MEAN CORPUSCULAR HGB CONC 34.9 g/dL CAL (32.0-36.0); MONO% 15.8 % (2-13); NEUT# 1.76 thou/uL (2.00-7.15); NEUT% 44.1 % (42-76); RED BLOOD COUNT 4.66 mill/uL (4.20-5.60); RED CELL DISTRI WIDTH 12.6 % (11.5-15.5)
[2023-11-12 15:42] LABS: ACT PARTIAL THROMBO TIME 24.4 SECONDS (20.0-32.5); ALBUMIN 4.1 g/dL (3.2-5.0); ALKALINE PHOSPHATASE 82 u/l (38-126); ANION GAP 15 (6-22 (CALC)); BUN 7 mg/dL (7-17); BUN/CREATININE RATIO 14 (12-20 (CALC)); CARBON DIOXIDE 24 mmol/l (22-30); CHLORIDE 101 mmol/l (95-108); CREATININE 0.5 mg/dL (0.5-1.0); GFR FOR AFR.AMER. > 60 ML/MIN (>=60 (CALC)); GFR OTHER RACES > 60 ML/MIN (>=60 (CALC)); POTASSIUM 3.6 mmol/l (3.5-5.1); SODIUM 136 mmol/l (137-146); TOTAL PROTEIN 7.1 g/dL (6.3-8.2)
[2023-11-12 15:43] LABS: BILIRUBIN, TOTAL 0.5 mg/dL (0.02-1.3); SGOT/AST 50 u/l (14-36)
[2023-11-12] MEDS ORDERED: GABAPENTIN300 M2 (15:45)
[2023-11-12] MEDS ORDERED: JARDIANCE25 MG (15:46)
[2023-11-12] MEDS ORDERED: TRAMADOL HCL50 MG PO (15:46)
[2023-11-12] MEDS ORDERED: PANTOPRAZOLE SO40 M1 PO (15:47)
[2023-11-12] MEDS ORDERED: CLOPIDOGREL75 MG PO (15:47)
[2023-11-12] MEDS ORDERED: METHOCARBAMOL500 MG PO (15:47)
[2023-11-12] MEDS ORDERED: DILTIAZEM120 M1 PO (15:48)
[2023-11-12] MEDS ORDERED: ALDACTONE25 MG PO (15:48)
[2023-11-12] MEDS ORDERED: MEDDOSEPAK PO (16:11)
[2023-11-12] MEDS ORDERED: VENTOLIN HFA108 MCG PO (16:11)
[2023-11-12] MEDS ORDERED: PROVENTIL0.083 % IN (16:11)
[2023-11-12] MEDS ORDERED: ZPAK PO (16:11)
== END 2023-11-12 16:46 | disposition home or self-care (01) ==
LOC: ED 14:08
PROVIDERS: Emergency Medicine
DX: J06.9 Acute upper respiratory infection, unspecified (principal); J45.901 Unspecified asthma with (acute) exacerbation; I10 Essential (primary) hypertension; E10.8 Type 1 diabetes mellitus with unspecified complications; E03.9 Hypothyroidism, unspecified; I25.2 Old myocardial infarction; Z79.4 Long term (current) use of insulin; Z79.84 Long term (current) use of oral hypoglycemic drugs; Z20.822 Contact with and (suspected) exposure to COVID-19

== ENCOUNTER 2023-12-29 12:23 | Emergency (ER) | payer OTHER ==
[~2023-12-29] VITALS: Ht 175.3 cm; Wt 127.0 kg
[2023-12-29] VITALS (19 sets, daily range): BP systolic 87–118; BP diastolic 44–80
[~2023-12-29 12:23] MED LIST changes: +ALDACTONE25 MG PO; +CLOPIDOGREL75 MG PO; +DILTIAZEM120 M1 PO; +JARDIANCE25 MG; +METHOCARBAMOL500 MG PO; +PANTOPRAZOLE SO40 M1 PO; +PROVENTIL0.083 % IN; +VENTOLIN HFA108 MCG PO
[2023-12-29] MEDS ORDERED: SODIUM CHLORIDE 0.9% 1,000 ML IV ONE (14:05)
[2023-12-29] MEDS ORDERED: PROMETHAZINE HCL 25 MG/ML AMP IV ONE (14:05)
[2023-12-29 15:03] LABS: BASO% 0.3 % (0-3); EOS% 0.8 % (0-8); HEMATOCRIT 44.4 % (37.0-47.0); HEMOGLOBIN 15.5 g/dl (12.0-16.0); IMMATURE GRANULOCYTES 0.1 % (0.0-5.0); LYMPH% 9.4 % (15-41); MEAN CELL VOLUME 87.6 fL CALC (80.0-100.0); MEAN CORPUSCULAR HGB 30.6 pG CALC (26.0-32.0); MEAN CORPUSCULAR HGB CONC 34.9 g/dL CAL (32.0-36.0); MONO% 5.6 % (2-13); NEUT# 6.49 thou/uL (2.00-7.15); NEUT% 83.8 % (42-76); RED BLOOD COUNT 5.07 mill/uL (4.20-5.60)
[2023-12-29 15:07] LABS: URINE BLOOD DIPSTICK Negative (NEGATIVE); URINE GLUCOSE - DIPSTICK >=1000 mg/dL (NEGATIVE); URINE KETONE 80 mg/dL (NEGATIVE); URINE LEUK ESTERASE Negative (NEGATIVE); URINE NITRITE - DIPSTICK Negative (Negative); URINE PROTEIN - DIPSTICK Trace mg/dL (NEG-TRACE)
[2023-12-29 15:08] LABS: HCG SERUM/URINE (NEG/POS) NEGATIVE (NEGATIVE)
[2023-12-29 15:13] LABS: URINE COLOR Dark yellow
[2023-12-29 15:22] LABS: ALBUMIN 4.1 g/dL (3.2-5.0); ALKALINE PHOSPHATASE 85 u/l (38-126); ANION GAP 14 (6-22 (CALC)); BUN 10 mg/dL (7-17); BUN/CREATININE RATIO 17 (12-20 (CALC)); CARBON DIOXIDE 26 mmol/l (22-30); CHLORIDE 99 mmol/l (95-108); CREATININE 0.6 mg/dL (0.5-1.0); GFR FOR AFR.AMER. > 60 ML/MIN (>=60 (CALC)); GFR OTHER RACES > 60 ML/MIN (>=60 (CALC)); POTASSIUM 3.9 mmol/l (3.5-5.1); SGOT/AST 32 u/l (14-36); SODIUM 135 mmol/l (137-146); TOTAL PROTEIN 7.1 g/dL (6.3-8.2)
[2023-12-29] MEDS ORDERED: PROCHLORPERAZINE EDISYLATE 10 MG/2 ML SDV IV ONE (15:45)
[2023-12-29] MEDS ORDERED: SODIUM CHLORIDE 0.9% 1,000 ML IV STA (17:44)
[2023-12-29] MEDS ORDERED: INSULIN REGULAR (HUMAN) 100 UNIT/ML INJ IV ONE (17:45)
[2023-12-29] MEDS ORDERED: FAMOTIDINE 10MG/ML 2ML SDV IV ONE (18:35)
[2023-12-29] MEDS ORDERED: PEPCID20 MG PO (18:39)
[2023-12-29] MEDS ORDERED: REGLAN10 MG PO (18:39)
== END 2023-12-29 19:32 | disposition home or self-care (01) ==
LOC: ED 12:23
PROVIDERS: Nurse Practitioner
DX: E10.65 Type 1 diabetes mellitus with hyperglycemia (principal); I10 Essential (primary) hypertension; E03.9 Hypothyroidism, unspecified; Z79.4 Long term (current) use of insulin; Z79.85 Long-term (current) use of injectable non-insulin antidiabetic drugs; Z20.822 Contact with and (suspected) exposure to COVID-19

== ENCOUNTER 2024-05-19 11:50 | Emergency (ER) | payer OTHER ==
[~2024-05-19] VITALS: Ht 175.3 cm; Wt 135.2 kg
[2024-05-19] VITALS (7 sets, daily range): BP systolic 92–103; BP diastolic 55–72
[~2024-05-19 11:50] MED LIST changes: +PEPCID20 MG PO
[2024-05-19 12:38] LABS: BASO% 0.5 % (0-3); EOS% 1.7 % (0-8); HEMATOCRIT 43.4 % (37.0-47.0); HEMOGLOBIN 14.4 g/dl (12.0-16.0); IMMATURE GRANULOCYTES 0.2 % (0.0-5.0); LYMPH% 19.9 % (15-41); MEAN CELL VOLUME 91.6 fL CALC (80.0-100.0); MEAN CORPUSCULAR HGB 30.4 pG CALC (26.0-32.0); MEAN CORPUSCULAR HGB CONC 33.2 g/dL CAL (32.0-36.0); MONO% 7.4 % (2-13); NEUT# 7.08 thou/uL (2.00-7.15); NEUT% 70.3 % (42-76); RED BLOOD COUNT 4.74 mill/uL (4.20-5.60); RED CELL DISTRI WIDTH 13.2 % (11.5-15.5)
[2024-05-19] MEDS ORDERED: ELIQUIS5 MG PO (12:42)
[2024-05-19] MEDS ORDERED: SODIUM CHLORIDE 0.9% 1,000 ML IV ONE (12:45)
[2024-05-19] MEDS ORDERED: DiphenhydrAMINE HCL 50 MG/ML SDV IV ONE (12:45)
[2024-05-19] MEDS ORDERED: METOCLOPRAMIDE HCL 10 MG/2 ML SDV IV ONE (12:45)
[2024-05-19 13:04] LABS: URINE BILIRUBIN - DIPSTICK Negative (NEGATIVE); URINE BLOOD DIPSTICK Negative (NEGATIVE); URINE GLUCOSE - DIPSTICK 500 mg/dL (NEGATIVE); URINE KETONE Negative (NEGATIVE); URINE LEUK ESTERASE Negative (NEGATIVE); URINE NITRITE - DIPSTICK Negative (Negative); URINE PH 5.5 (4.5-8.0); URINE PROTEIN - DIPSTICK Negative (NEG-TRACE); URINE UROBILINOGEN - DIPSTICK 0.2 E.U./dL (0.2)
[2024-05-19 13:06] LABS: URINE COLOR Yellow
[2024-05-19 13:19] LABS: INTERNATIONAL NORMALIZED RATIO 1.1 RATIO (0.7-1.3)
[2024-05-19 13:20] LABS: ALBUMIN 3.8 g/dL (3.2-5.0); BILIRUBIN, TOTAL 0.7 mg/dL (0.02-1.3); CREATININE 0.6 mg/dL (0.5-1.0); POTASSIUM 4.5 mmol/l (3.5-5.1); PROTHROMBIN TIME 10.3 SECONDS (9.0-12.5); TOTAL PROTEIN 6.6 g/dL (6.3-8.2)
[2024-05-19 13:51] LABS: TSH, 3RD GENERATION 2.44 uIU/mL (0.47 - 4.68)
== END 2024-05-19 15:26 | disposition home or self-care (01) ==
LOC: ED 11:50
PROVIDERS: Emergency Medicine
DX: R55 Syncope and collapse (principal); E10.9 Type 1 diabetes mellitus without complications; I10 Essential (primary) hypertension; E03.9 Hypothyroidism, unspecified; Z86.711 Personal history of pulmonary embolism; Z86.718 Personal history of other venous thrombosis and embolism; Z79.4 Long term (current) use of insulin; Z79.84 Long term (current) use of oral hypoglycemic drugs; Z79.85 Long-term (current) use of injectable non-insulin antidiabetic drugs

== ENCOUNTER 2024-06-14 07:31 | Emergency (ER) | payer OTHER ==
[2024-06-14] VITALS (10 sets, daily range): BP systolic 84–127; BP diastolic 52–93
[~2024-06-14] VITALS: Ht 175.3 cm; Wt 135.0 kg
[~2024-06-14 07:31] MED LIST changes: +ELIQUIS5 MG PO
[2024-06-14 08:07] LABS: BASO% 0.4 % (0-3); EOS% 0.6 % (0-8); HEMATOCRIT 42.2 % (37.0-47.0); HEMOGLOBIN 14.1 g/dl (12.0-16.0); IMMATURE GRANULOCYTES 0.4 % (0.0-5.0); LYMPH% 20.1 % (15-41); MEAN CELL VOLUME 90.8 fL CALC (80.0-100.0); MEAN CORPUSCULAR HGB 30.3 pG CALC (26.0-32.0); MEAN CORPUSCULAR HGB CONC 33.4 g/dL CAL (32.0-36.0); MONO% 13.7 % (2-13); NEUT# 5.15 thou/uL (2.00-7.15); NEUT% 64.8 % (42-76); RED BLOOD COUNT 4.65 mill/uL (4.20-5.60); RED CELL DISTRI WIDTH 12.7 % (11.5-15.5)
[2024-06-14 08:18] LABS: ALBUMIN 4.3 g/dL (3.2-5.0); ALKALINE PHOSPHATASE 97 u/l (38-126); ANION GAP 12 (6-22 (CALC)); BILIRUBIN, TOTAL 0.8 mg/dL (0.02-1.3); BUN 10 mg/dL (7-17); BUN/CREATININE RATIO 15 (12-20 (CALC)); CARBON DIOXIDE 21 mmol/l (22-30); CHLORIDE 107 mmol/l (95-108); CREATININE 0.7 mg/dL (0.5-1.0); ESTIMATED GFR 113 ML/MIN (>=90 (CALC)); POTASSIUM 4.2 mmol/l (3.5-5.1); SGOT/AST 27 u/l (14-36); SODIUM 136 mmol/l (137-146); TOTAL PROTEIN 7.4 g/dL (6.3-8.2)
[2024-06-14] MEDS ORDERED: methylPREDNISolone SODIUM SUCC 125 MG/2 ML SDV IV ONE (08:55)
[2024-06-14] MEDS ORDERED: SODIUM CHLORIDE 0.9% 1,000 ML IV ONE (09:00)
[2024-06-14] MEDS ORDERED: ALBUTEROL SULFATE 8 GM INH IN ONE (09:00)
[2024-06-14] MEDS ORDERED: PAXLOVID PO (09:54)
[2024-06-14] MEDS ORDERED: IPRATROPIU0.5 MG/3 M IN (09:54)
== END 2024-06-14 10:19 | disposition home or self-care (01) ==
LOC: ED 07:31
PROVIDERS: Family Medicine
DX: U07.1 COVID-19 (principal); R11.2 Nausea with vomiting, unspecified; R06.02 Shortness of breath; R07.9 Chest pain, unspecified; E10.8 Type 1 diabetes mellitus with unspecified complications; I10 Essential (primary) hypertension; E66.01 Morbid (severe) obesity due to excess calories; E03.9 Hypothyroidism, unspecified; J45.909 Unspecified asthma, uncomplicated; Z86.711 Personal history of pulmonary embolism; Z79.01 Long term (current) use of anticoagulants; Z86.718 Personal history of other venous thrombosis and embolism; Z79.4 Long term (current) use of insulin; Z79.84 Long term (current) use of oral hypoglycemic drugs; Z86.16 Personal history of COVID-19

== ENCOUNTER 2024-12-02 07:24 | Emergency (ER) | payer OTHER ==
[~2024-12-02] VITALS: Ht 175.3 cm; Wt 117.0 kg
[2024-12-02] VITALS (14 sets, daily range): BP systolic 92–123; BP diastolic 52–81
[~2024-12-02 07:24] MED LIST changes: +IPRATROPIU0.5 MG/3 M IN; +PAXLOVID PO
[2024-12-02 08:33] LABS: URINE BILIRUBIN - DIPSTICK Negative (NEGATIVE); URINE BLOOD DIPSTICK Small (NEGATIVE); URINE GLUCOSE - DIPSTICK 500 mg/dL (NEGATIVE); URINE KETONE Negative (NEGATIVE); URINE LEUK ESTERASE Negative (NEGATIVE); URINE NITRITE - DIPSTICK Negative (Negative); URINE PH 5.5 (4.5-8.0); URINE PROTEIN - DIPSTICK Negative (NEG-TRACE); URINE UROBILINOGEN - DIPSTICK 0.2 E.U./dL (0.2)
[2024-12-02 08:43] LABS: ALBUMIN 4.3 g/dL (3.2-5.0); BILIRUBIN, TOTAL 0.6 mg/dL (0.02-1.3); CREATININE 0.7 mg/dL (0.5-1.0); POTASSIUM 4.3 mmol/l (3.5-5.1); TOTAL PROTEIN 7.4 g/dL (6.3-8.2)
[2024-12-02 08:44] LABS: URINE COLOR Yellow
[2024-12-02 08:45] LABS: BASO% 0.8 % (0-3); EOS% 2.7 % (0-8); HEMATOCRIT 45.5 % (37.0-47.0); HEMOGLOBIN 14.9 g/dl (12.0-16.0); IMMATURE GRANULOCYTES 0.2 % (0.0-5.0); LYMPH% 30.7 % (15-41); MEAN CELL VOLUME 92.9 fL CALC (80.0-100.0); MEAN CORPUSCULAR HGB 30.4 pG CALC (26.0-32.0); MEAN CORPUSCULAR HGB CONC 32.7 g/dL CAL (32.0-36.0); MONO% 8.6 % (2-13); NEUT# 4.86 thou/uL (2.00-7.15); RED BLOOD COUNT 4.9 mill/uL (4.20-5.60); RED CELL DISTRI WIDTH 13.5 % (11.5-15.5)
[2024-12-02 08:45] LABS: URINE EPITHELIAL CELLS FEW EPI/hpf (0-FEW)
[2024-12-02 09:13] LABS: TSH, 3RD GENERATION 2.47 uIU/mL (0.47 - 4.68)
== END 2024-12-02 12:22 | disposition home or self-care (01) ==
LOC: ED 07:24
PROVIDERS: Family Medicine
DX: E10.649 Type 1 diabetes mellitus with hypoglycemia without coma (principal); I10 Essential (primary) hypertension; E03.9 Hypothyroidism, unspecified; Z96.41 Presence of insulin pump (external) (internal); Z79.4 Long term (current) use of insulin; Z79.84 Long term (current) use of oral hypoglycemic drugs